=== PATIENT | female | born 1945 | race Caucasian/White ===

== ENCOUNTER 2019-10-07 00:08 | Outpatient (CLI) | payer MEDICARE, SELFPAY ==
[2019-10-07 16:41] LABS: SARS-CoV-2 RNA PCR Negative
== END 2019-10-07 00:09 | disposition home or self-care (01) ==
LOC: ANHCOVIDDT 00:09
PROVIDERS: PCP Internal Medicine; Visit Provider Orthopaedic Surgery
DX: Z01.812 Encounter for preprocedural laboratory examination (principal); Z20.828 Contact with and (suspected) exposure to other viral communicable diseases
CPT/HCPCS: 87635; C9803; U0003

== ENCOUNTER 2019-10-09 02:14 | Day surgery (SDC) | payer MEDICARE, SELFPAY ==
[2019-10-02 14:09] VITALS: BMI 29.2
[2019-10-09] VITALS (8 sets, daily range): BP systolic 113–134; BP diastolic 59–76; PULSE 53–76; RESP 10–18; TEMP 36.6–36.7; O2SAT 93–98
--- NOTE | 2019-10-09 07:43 | WPDHPUPDATE1 ---
History and Physical Update Update Date/Time: 10/09/19 07:43 History and Physical has been reviewed, including an updated exam of the patient. There are NO changes in the patient's condition. Risks, benefits, and alternatives have been discussed and questions answered. Patient agrees to proceed with procedure.
--- NOTE | 2019-10-09 09:10 | WPDANESEPPF ---
Anes - Initial Pre Proc Eval Procedure: Operation Date: 10/09/19 10:30 Proposed Procedures p Left Knee Arthroscopy, Proceed As Indicated - Damon Botello MD Date/Time: 10/09/19 09:10 Surgeon: Damon Botello MD Pre Op Diagnosis: Left Knee medial meniscal tear Patient Data Age: 74 Gender: F Height: 1.65 m Weight: 79.54 kg Allergies Allergy/AdvReac Type Severity Reaction Status Date / Time tetracycline Allergy Unknown Itching Verified 10/03/19 13:35 Home Medications Medication Instructions Recorded Confirmed Type ibuprofen 600 mg tablet 600 mg PO TID PRN #30 tablet 05/30/19 10/02/19 Rx chlorhexidine gluconate 4 % 1 applic TOPICAL ONCE #237 ml 07/04/19 10/02/19 Rx topical liquid acetaminophen [Tylenol Extra 1,000 mg PO BID PRN 10/02/19 10/02/19 History Strength] amlodipine-benazepril 1 cap PO DAILY 10/02/19 10/02/19 History cetirizine [Zyrtec] 10 mg PRN 10/02/19 10/02/19 History cholecalciferol (vitamin D3) 50 mcg PO DAILY 10/02/19 10/02/19 History conjugated estrogens [Premarin] 0.625 mg VAGINAL EVERY OTHER DAY 10/02/19 10/02/19 History levothyroxine 75 mcg PO DAILY 10/02/19 10/02/19 History omeprazole 20 mg PO HS 10/02/19 10/02/19 History rosuvastatin 10 mg PO DAILY 10/02/19 10/02/19 History Patient hx anesthesia problems: none Family hx anesthesia problems: none PMFSH Past Medical History Medical History Acid reflux History of one miscarriage HLD (hyperlipidemia) HTN (hypertension) Hypothyroidism Left knee DJD Low vitamin D level Menopause Pes anserine bursitis Right knee meniscal tear Stress fracture of tibia Trochanteric bursitis Vision abnormalities Surgical History Surgical History H/O arthroscopic knee surgery H/O section Family History Family History Sibling Family history of diabetes mellitus in first degree relative Mother Family history of Alzheimer's disease Social History Social History Smoking status: Never smoker Alcohol intake: never Substance use: never Substance use type: does not use Additional living arrangements comments: Lives with 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 Gender identity (if verbalized by the patient): Female Spiritual care concerns: No Agree to blood products: Yes Anes - Eval Final PreProcedure Day of Procedure 10/09/19 09:10 Patient weight: overweight Heart: regular rate and rhythm Lungs: clear to auscultation and normal air movement Airway: Mallampati scale class II Neurological: alert and oriented Last oral intake: >/= 8 hours ASA classification: II Emergent: no Anesthetic plan: proceed Anesthesia type and monitoring: general LMA Informed Consent: The patient's anesthetic plan and its attendant risks and benefits were discussed with the patient/family/POA. Questions were solicited and answers provided to the satisfaction of the patient/family/POA.
[2019-10-09] MEDS: LACTATED RINGERS 1,000 ML 30 ML IV CONT ×2 (09:15→11:38)
[2019-10-09] MEDS: CELECOXIB 200 MG CAPSULE PO (09:30)
[2019-10-09] MEDS: ceFAZolin 2 GM/D5W 50 ML 2 GM/50 ML BAG IVPB (10:24)
--- NOTE | 2019-10-09 12:09 | PM.OP ---
Procedure Note - Brief Procedure Note - Brief Date of procedure: 10/09/19 Pre-op diagnosis: Left Knee medial meniscal tear Post-op diagnosis: same Procedure performed: R KNEE SCOPE Anesthesia: GLMA Surgeon: Damon Botello MD Estimated blood loss (mL): 5 Complications: No immediate complications Condition: stable Disposition: PACU
--- NOTE | 2019-10-09 13:37 | OP_ITS ---
DATE OF PROCEDURE: 10/09/2019 PREOPERATIVE DIAGNOSIS: Left knee medial meniscus tear. POSTOPERATIVE DIAGNOSIS: Left knee medial meniscus tear. PROCEDURE: Left knee arthroscopy with partial medial meniscectomy and major synovectomy. ANESTHESIA: General. COMPLICATION: None. INDICATIONS: This is a 74-year-old female who has had knee pain, was diagnosed with a complex medial meniscus tear. She was indicated for left knee arthroscopy. DESCRIPTION OF PROCEDURE: The patient was taken to the operative room in stable condition and placed in supine position. General anesthesia was induced and the left lower extremity was sterilely prepped and draped from the toes to the thigh. Superomedial portal was used for an outflow cannula. Inferolateral portal was used for the camera. The camera was introduced. 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 There was synovitis in the superomedial compartment and Hoffa synovium. The medial compartment was entered, there was a complex tear of the medial meniscus. A medial portal was established and a shaver and a biter were introduced at separate times and the medial meniscus tear was resected to a smooth base. Then, limited chondroplasty was performed on the medial femoral condyle. The ACL was identified, it was intact. The lateral compartment was entered. There was no tear of lateral meniscus and no significant chondromalacia. The patellofemoral joint was entered once again and chondroplasty was performed on the patella and on the trochlea. There was significant synovitis that was resected both in the medial and the Hoffa's region. The knee joint was irrigated thoroughly. Another quick look with the arthroscope revealed that there was some [id number] on the medial compartment and that area was approximately 1 x 1 cm. There was no [id number] in the lateral compartment. There was near bone with grade 3 chondromalacia and some parts of the patella as well. The knee joint was irrigated thoroughly. The wounds were approximated with 4-0 nylon suture. Sterile dressing was applied. The patient was extubated. Ananya I MT: Soumya
== END 2019-10-09 13:45 | disposition home or self-care (01) ==
PROVIDERS: PCP Internal Medicine; Visit Provider Orthopaedic Surgery
PROC: (CPT 29870; principal; 2019-10-09 10:30)
DX: M23.332 Other meniscus derangements, other medial meniscus, left knee (principal); M94.262 Chondromalacia, left knee; M65.862 Other synovitis and tenosynovitis, left lower leg; I10 Essential (primary) hypertension; E78.5 Hyperlipidemia, unspecified; E03.9 Hypothyroidism, unspecified; E55.9 Vitamin D deficiency, unspecified; K21.9 Gastro-esophageal reflux disease without esophagitis
CPT/HCPCS: 29881; 29876; A9270; J0690; J2405; J2704; J3010; J7120

== ENCOUNTER 2020-08-17 09:56 | Outpatient (CLI) | payer MEDICARE, SELFPAY ==
[2020-08-17 11:09] LABS: Basophils Absolute Auto 0.1 K/mm3 (0.0-0.1); Basophils Percent Auto 0.6 % (0.2-1.2); Eosinophils Absolute Auto 0.2 K/mm3 (0-0.3); Eosinophils Percent Auto 1.9 % (0-4.4); Hemoglobin 14.9 g/dL (12.0-15.0); Immature Granulocyte Absolute 0.04 K/mm3 (0.00-0.031); Immature Granulocyte Percent A 0.5 % (0-0.5); Lymphocytes Absolute Auto 2.08 K/mm3 (0.9-3.2); Lymphocytes Percent Auto 23.6 % (18.3-44.2); Mean Corpuscular HGB Conc 32.4 g/dl (32-36); Mean Corpuscular Hemoglobin 29.9 pg (26-34); Mean Corpuscular Volume 92.4 fl (80-100); Mean Platelet Volume 9.4 fl (7.4-10.4); Monocytes Absolute Auto 0.8 K/mm3 (0.1-0.6); Monocytes Percent Auto 9.2 % (2.6-8.5); Neutrophils Absolute Auto 5.7 K/mm3 (1.3-6.7); Neutrophils Percent Auto 64.2 % (45.5-73.1); Platelet Count Result 343 k/mm3 (150-375); Red Blood Count 4.98 M/mm3 (4.2-5.4); Red Cell Distribution Width 12.2 % (11.5-14.5); White Blood Count 8.8 K/mm3 (4.5-10.0)
[2020-08-17 11:12] LABS: Add Urine Microscopic? NO; Appearance Urine Clear (Clear); Bilirubin Urine Negative (Negative); Blood Urine Negative (Negative); Color Urine Straw (Yellow); Glucose Urine UA Negative (Negative); Ketones Urine Negative (Negative); Leukocyte Esterase Ur Negative LEU/UL (Negative); Nitrate Urine Negative (Negative); Protein Urine Negative (Negative); Specific Grav Ur 1.011 (1.001-1.035); Urobilinogen Urine Negative mg/dL (<2.0)
[2020-08-17 11:19] LABS: Hemoglobin A1C 6.1 % (<5.7)
[2020-08-17 11:24] LABS: Albumin Level 4.6 g/dL (3.5-5.1); Anion Gap 8 mmol/L (8-16); Blood Urea Nitrogen 16 mg/dL (7-17); Calcium 9.5 mg/dL (8.4-10.2); Carbon Dioxide 32 mmol/L (22-30); Chloride 104 mmol/L (98-107); Estimated Glomerular Filt Rate > 60; Glucose 117 mg/dL (65-105); Potassium 3.7 mmol/L (3.4-5.0); Sodium 144 mmol/L (137-145)
[2020-08-17 11:31] LABS: Urine Cotinine NEGATIVE
[2020-08-17 12:06] LABS: INR 0.9; Prothrombin Time 12.8 Seconds (11.1-14.7)
[2020-08-17 12:07] LABS: Partial Thromboplastin Time 30.9 SECONDS (22.3-36.8)
== END 2020-08-17 09:57 | disposition home or self-care (01) ==
LOC: ANHSURGERY 09:58
PROVIDERS: PCP Internal Medicine; Visit Provider Orthopaedic Surgery
DX: M17.12 Unilateral primary osteoarthritis, left knee (principal); Z01.818 Encounter for other preprocedural examination
CPT/HCPCS: 80048; 80307; 81003; 82040; 83036; 85025; 85610; 85730; 86850; 86900; 86901; 87081

== ENCOUNTER → 2020-08-22 01:04 | Outpatient (CLI) | payer MEDICARE, SELFPAY ==
[2020-08-22 19:44] LABS: SARS-CoV-2 RNA PCR Negative
== END ==
PROVIDERS: PCP Internal Medicine; Visit Provider Orthopaedic Surgery
DX: Z01.812 Encounter for preprocedural laboratory examination (principal); Z20.822 Contact with and (suspected) exposure to COVID-19
CPT/HCPCS: C9803; U0003; U0005

== ENCOUNTER 2020-08-26 17:19 | Observation (INO) | payer MEDICARE, SELFPAY ==
[2020-08-17 10:19] VITALS: BP 156/78; PULSE 70; RESP 18; TEMP 36.8; O2SAT 98; BMI 29.9
--- NOTE | 2020-08-24 14:19 | WPDANESEPPF ---
Anes - Initial Pre Proc Eval Procedure: Operation Date: 08/25/20 10:30 Proposed Procedures p Left Total Knee Arthroplasty - Damon Botello MD Date/Time: 08/24/20 14:19 Surgeon: Damon Botello MD Pre Op Diagnosis: left knee AVN Patient Data Age: 75 Gender: F Height: 1.65 m Weight: 81.5 kg Last Vital Signs Temp 36.8 C 08/17/20 10:19 Pulse 70 08/17/20 10:19 Resp 18 08/17/20 10:19 BP 156/78 H 08/17/20 10:19 Pulse Ox 98 08/17/20 10:19 Allergies Allergy/AdvReac Type Severity Reaction Status Date / Time tetracycline Allergy Unknown Itching Verified 08/17/20 10:08 Home Medications Medication Instructions Recorded Confirmed Type ibuprofen 600 mg tablet 600 mg PO TID PRN #30 tablet 05/30/19 08/17/20 Rx Zyrtec 10 mg PRN PRN 10/02/19 08/17/20 History acetaminophen [Tylenol Extra 1,000 mg PO BID PRN 10/02/19 08/17/20 History Strength] amlodipine-benazepril 1 cap PO QAM 10/02/19 08/17/20 History cholecalciferol (vitamin D3) 50 mcg PO DAILY 10/02/19 08/17/20 History levothyroxine 75 mcg PO DAILY 10/02/19 08/17/20 History omeprazole 20 mg PO HS 10/02/19 08/17/20 History rosuvastatin 10 mg PO QAM 10/02/19 08/17/20 History chlorhexidine gluconate 4 % 1 applic TOPICAL ONCE #237 ml 07/09/20 08/17/20 Rx topical liquid Patient hx anesthesia problems: none Family hx anesthesia problems: none PMFSH Past Medical History Medical History (Updated 08/24/20 @ 14:20 by Robert Bruner MD) Acid reflux AVN (avascular necrosis of bone) History of one miscarriage HLD (hyperlipidemia) HTN (hypertension) Hypothyroidism Left knee DJD Low vitamin D level Menopause Osteoarthritis Overweight (BMI 25.0-29.9) Pes anserine bursitis Right knee meniscal tear Stress fracture of tibia Trochanteric bursitis Vision abnormalities Surgical History Surgical History H/O arthroscopic knee surgery H/O section Family History Family History Sibling Family history of diabetes mellitus in first degree relative Mother Family history of Alzheimer's disease Social History Social History Smoking status: Never smoker Second hand tobacco smoke exposure: No Alcohol intake: never Substance use: never Substance use type: does not use Living arrangements: with family Additional living arrangements comments: Lives with 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 Gender identity (if verbalized by the patient): Female Spiritual care concerns: No Agree to blood products: Yes Anes - Eval Final PreProcedure Day of Procedure 08/24/20 14:19 Patient weight: overweight Heart: regular rate and rhythm Lungs: clear to auscultation and normal air movement Airway: Mallampati scale class II Neurological: alert and oriented Last oral intake: >/= 8 hours ASA classification: II Emergent: no Anesthetic plan: proceed Anesthesia type and monitoring: general LMA Informed Consent: The patient's anesthetic plan and its attendant risks and benefits were discussed with the patient/family/POA. Questions were solicited and answers provided to the satisfaction of the patient/family/POA.
[2020-08-25] VITALS (16 sets, daily range): BP systolic 109–140; BP diastolic 58–77; PULSE 65–88; RESP 10–18; TEMP 36.1–36.6; O2SAT 92–100; BMI 29.9
--- NOTE | 2020-08-25 07:32 | WPDHPUPDATE1 ---
History and Physical Update Update Date/Time: 08/25/20 07:32 History and Physical has been reviewed, including an updated exam of the patient. There are NO changes in the patient's condition. Risks, benefits, and alternatives have been discussed and questions answered. Patient agrees to proceed with procedure.
--- NOTE | 2020-08-25 09:22 | WPDANESPNB ---
Anes - Peripheral Nerve Block Date/Time: 08/25/20 09:22 I have discussed with the patient/family/POA the placement of a peripheral nerve block for post-operative pain management, including associated risks, benefits, complications, and side effects. Alternative methods of post-operative analgesia were detailed. Questions were solicited and answers provided to the satisfaction of the patient/family/POA. Time-Out: A pre-procedural Time-Out was completed immediately before starting the procedure and confirmed: Patient Identification, Site, Procedure, Patient Position and the Availability of Requisite Equipment. Clinical Indications: Acute post-operative pain management requested by the operative surgeon. Nerve Block Insertion Note Anes-nerve block: adductor canal left Patient position: supine Skin prep: chlorhexidine Needle: 22 gauge, stimulating, insulated echogenic needle. Needle length: 80 mm Technique: ultrasound Technique comment: in plane Injectate: bupivacaine 0.5% with epi 5 mcg/ml (30cc) Observations: tolerated well Complications: none Procedure start time:: 1010 Procedure end time:: 101
[2020-08-25] MEDS: ACETAMINOPHEN 500 MG TABLET 1000 MG PO (09:23)
[2020-08-25] MEDS: LACTATED RINGERS 1,000 ML 30 ML IV CONT ×2 (09:28→12:33)
[2020-08-25] MEDS: TRANEXAMIC ACID 1,000MG/ISO100 1,000 MG/100 ML BAG 200 MG IVPB (09:30)
--- NOTE | 2020-08-25 10:17 | WPDHPUPDATE1 ---
History and Physical Update Update Date/Time: 08/25/20 10:17 History and Physical has been reviewed, including an updated exam of the patient. There are NO changes in the patient's condition. Risks, benefits, and alternatives have been discussed and questions answered. Patient agrees to proceed with procedure. WE WILL ALSO INJECT BILATERAL FEET FOR HER PLANTAR FASCITIS.
[2020-08-25] MEDS: ceFAZolin 2 GM/D5W 50 ML 2 GM/50 ML BAG IVPB ×2 (10:20→18:21)
[2020-08-25] MEDS: methylPREDNISolone ACETATE 80 MG/ML VIAL IM (11:04)
[2020-08-25] MEDS: GENTAMICIN BONE CEMENT REFOBACIN 1 EACH TOPICAL (11:10)
[2020-08-25] MEDS: TRANEXAMIC ACID 1,000 MG/10 ML AMPUL 1000 MG IV PUSH (12:06)
--- NOTE | 2020-08-25 12:33 | PM.PROC ---
Procedure Note - Detailed Date of procedure: 08/25/20 Pre-op diagnosis: left knee AVN, B PLANTAR FASCIITIS Post-op diagnosis: same Procedure performed: L TKA, INJECTION BILATERAL FEET Description of procedure: THE LEFT KNEE WAS PREPPED AND DRAPED IN THE STERILE FASHION. A MIDLINE SKIN INCISION WAS MADE. A MEDIAL PARAPATELLAR ARTHROTOMY WAS MADE. THE PATELLA WAS EVERTED. THERE WAS TRICOMPARTMENT DJD. THERE WAS MINIMAL PATELLA DJD. AN INTRAMEDULLARY SUMAN WAS PLACED IN THE FEMUR. A DISTAL FEMORAL CUT WAS MADE IN 5 DEGREES OF VALGUS REMOVING APPROXIMATELY 9 MM OF BONE FROM THE DISTAL FEMUR. THE FEMUR WAS SIZED TO 62.5. A 62.5 FEMORAL CUTTING BLOCK WAS PLACED IN 3 DEGREES OF EXTERNAL ROTATION AND IN ALIGNMENT WITH JB'S LINE AND THE TRANSEPICONDYLAR AXIS. ANTERIOR POSTERIOR AND CHAMFER CUTS WERE MADE. THE CUTS WERE EXCELLENT. NEXT AN INTRAMEDULLARY CUTTING GUIDE WAS PLACED IN THE TIBIA. A TRANS TIBIAL CUT WAS MADE ALONG THE LONG AXIS OF THE TIBIA. APPROXIMATELY 10 MM OF BONE WAS REMOVED FROM THE HIGH SIDE OF THE TIBIA. THE TIBIA WAS THEN PLANED TO A SMOOTH SURFACE. POSTERIOR FEMORAL OSTEOPHYTES WERE REMOVED FROM THE FEMORAL CONDYLES. A 71 TIBIAL TRIAL WAS PLACED IN ALIGNMENT WITH THE 1/3 MEDIAL ASPECT OF THE TIBIAL TUBERCLE. THEN A 70 FEMORAL TRIAL COMPONENT WAS PLACED. BOTH HAD EXCELLENT FITS. EVENTUALLY A 10 MM POLYETHYLENE TRIAL COMPONENT WAS PLACED. THE KNEE WAS TAKEN THROUGH A RANGE OF MOTION. THE KNEE CAME OUT TO FULL EXTENSION. THERE WAS NO ABNORMAL TILT TO THE PATELLA. THERE WAS GOOD A/P AND VARUS/VALGUS STABILITY. THERE WAS NO EXCESSIVE ROLL BACK WITH FLEXION. THE TRIAL COMPONENTS WERE REMOVED. THEN A 62.5 FEMORAL COMPONENT AND 71 TIBIAL COMPONENT WITH A 10 CR POLYETHYLENE COMPONENT WERE CEMENTED INTO PLACE. ONCE THE CEMENT WAS HARD THE KNEE WAS TAKEN THROUGH A ROM AGAIN AND FOUND TO BE STABLE WITH NO PATELLA TILT NO EXCESSIVE ROLL BACK WITH FLEXION AND GOOD STABILITY WITH COMPLETE AND FULL EXTENSION. THE KNEE WAS IRRIGATED WITH STERILE BETADINE AND WATER FOR ABOUT 3 MINUTES. THE BLEEDERS WERE CAUTERIZED. THE ARTHROTOMY WAS REPAIRED WITH NUMBER 1 VICRYL. THE SUB CUTANEOUS LAYER WITH 2-0 VICRYL AND THE SKIN WITH SUDHA. THE WOUND WAS WASHED AND A STERILE DRESSING WAS APPLIED. NEXT BOTH HEALS WERE PREPPED AND INJECTED WITH 1 CC DEPO MEDROL 8O MG AND 3 CC OF LIDOCAINE 1%. THE PATIENT WAS EXTUBATED. Anesthesia: GETA Surgeon: Damon Botello MD Estimated blood loss (mL): 100 Complications: No immediate complications Condition: stable Disposition: PACU
[2020-08-25] MEDS: HYDROmorphone HCL INJ (*CRX) 1 MG/ML SYR 0.25 MG IV PUSH ×4 (12:55→13:31)
--- NOTE | 2020-08-25 14:20 | ADMGEN ---
This patient, Katerina Kiran, was admitted to Medical Room 247-. Patient/family oriented to hospital policies and general routines including ID bracelet, bed and alarms, visiting hours, pain management, procedures, bathroom and other care routines, personal items, smoking policy, room service/diet, and visiting hours. Information on how to activate the Rapid Response Team has been discussed. Patient/Family are encouraged to report perceived risks to care and to ask questions if they do not understand what they are told or what they should do.
--- NOTE | 2020-08-25 15:15 | WPDCN ---
Assessment and Plan Assessment and plan (1) Degenerative joint disease of left knee: Code(s): M17.12 - Unilateral primary osteoarthritis, left knee Status: Acute Assessment and Plan: POD# 0 status post left total knee arthroplasty. Wound care and pain control will be deferred to Dr. Botello as well as DVT prophylaxis. (2) Hypertension: Code(s): I10 - Essential (primary) hypertension Status: Acute Assessment and Plan: Blood pressures were reviewed and they are stable postoperatively. Resume antihypertensives and monitor daily. (3) Hyperlipidemia: Code(s): E78.5 - Hyperlipidemia, unspecified Status: Acute Assessment and Plan: Continue statin and check LFTs. (4) Gastroesophageal reflux disease: Code(s): K21.9 - Gastro-esophageal reflux disease without esophagitis Status: Acute Assessment and Plan: No acute issues. Continue PPI. (5) Hypothyroidism: Code(s): E03.9 - Hypothyroidism, unspecified Status: Chronic Assessment and Plan: Resume levothyroxine and check TSH. (6) Bilateral plantar fasciitis: Code(s): M72.2 - Plantar fascial fibromatosis Status: Acute Assessment and Plan: Status post injections in bilateral feet. (7) Postoperative nausea and vomiting: Code(s): R11.2 - Nausea with vomiting, unspecified; Z98.890 - Other specified postprocedural states Status: Acute Assessment and Plan: Supportive care with IV fluid rehydration and antiemetics as needed. Additional Plan Thank you for allowing us to participate in this patient's care. Please do not hesitate to contact us with any questions. Supervising physician for this medical consultation is Dr. Jennifer Vasquez. [facility] Data of Consult Date/Time: 08/25/20 15:15 Requesting Physician: Damon Botello MD Primary Care Provider: Luis Bond, Consult Narrative Narrative: This is a 75-year-old female with degenerative joint disease left knee with avascular necrosis status post total knee arthroplasty whom the hospitalist service has been consulted for management of her medical conditions postoperatively. Her medical history is significant for GERD, hypertension, hyperlipidemia, and hypothyroidism. She has had pain in that knee for quite some time and despite multiple treatments including injections and arthroscopy she has continued to have pain and thus she elected for replacement today. Her surgery was performed under general anesthesia with no immediate complications documented an estimated blood loss of 100 milliliters. Unfortunately she has had significant nausea and some episodes of emesis since surgery and has only been able to tolerate some crackers and white soda. At the time my evaluation she rates her pain 5/10, describing a constant aching discomfort about the knee. She has not had fever, chills, or sweats and she also denies chest pain shortness of breath. No paresthesias, skin color, or temperature changes distal to the surgical site. Review of Systems Review of Systems: Narrative: Twelve systems were reviewed with pertinent positives and negatives as per HPI. She reports maturing cataracts and wears glasses. Suffers from seasonal allergies. No recent cold or flu symptoms. She did have COVID in April 2020 and has been vaccinated as well. No cardiac or pulmonary disease. No history of venous thromboembolism. Except as documented, all other systems were reviewed and are negative. [facility] Past Medical History Medical History (Updated 08/25/20 @ 20:53 by Carrol Medrano PA-C) COVID-19 (~04/2020) Degenerative joint disease Gastroesophageal reflux disease Hyperlipidemia Hypertension Hypothyroidism Low vitamin D level Surgical History Surgical History (Updated 08/25/20 @ 15:10 by Carrol Medrano PA-C) History of 2 sections History of arthroplasty of left knee History of a
[2020-08-25] MEDS: ONDANSETRON INJ 4 MG/2 ML VIAL IV PUSH (16:04)
[2020-08-25] MEDS: SODIUM CHLORIDE 0.9% IV 1,000 ML 125 ML IV CONT (16:04)
[2020-08-25] MEDS: DOCUSATE SODIUM 100 MG CAPSULE PO (17:55)
[2020-08-25] MEDS: oxyCODONE HCL (*CRX) 2.5 MG TAB IR 7.5 MG PO (18:29)
[2020-08-25] MEDS: oxyCODONE/ACETAMINOPHEN (*CRX) 5-325 MG TABLET 1 TABLET PO (21:51)
[2020-08-25] MEDS: PANTOPRAZOLE 40 MG TABLET PO (21:54)
[2020-08-25] MEDS: FAMOTIDINE 20 MG TABLET PO (21:54)
--- NOTE | ~2020-08-26 | XR_ITS ---
EXAMINATION: XR knee LT 2V DATE: 08/25/2020 12:52 INDICATION: Total left knee arthroplasty. Postop. TECHNIQUE: 2 views of left knee were obtained. COMPARISON: Left knee radiographs 08/17/2020 FINDINGS: There is a total left knee arthroplasty without patellar resurfacing in near-anatomic align ment. No fracture. There is gas in the knee joint and soft tissues, consistent with recent surgery. A nterior skin fatemeh are noted. IMPRESSION: 1. Total left knee arthroplasty in near-anatomic alignment. Reviewed, dictated and finalized at location B.
[2020-08-26] MEDS: ceFAZolin 2 GM/D5W 50 ML 2 GM/50 ML BAG IVPB ×2 (02:50→09:41)
[2020-08-26 03:58] VITALS: BP 112/58; PULSE 71; RESP 18; TEMP 36.6; O2SAT 96
[2020-08-26] MEDS: oxyCODONE/ACETAMINOPHEN (*CRX) 5-325 MG TABLET 1 TABLET PO ×3 (04:47→16:54)
[2020-08-26 05:54] LABS: Alanine Aminotransferase 21 U/L (4-35); Albumin Level 3.9 g/dL (3.5-5.1); Alkaline Phosphatase 66 U/L (38-126); Anion Gap 6 mmol/L (8-16); Aspartate Amino Transferase 31 U/L (14-36); Bilirubin,Total 0.3 mg/dL (0.2-1.3); Blood Urea Nitrogen 11 mg/dL (7-17); Calcium 8.9 mg/dL (8.4-10.2); Carbon Dioxide 28 mmol/L (22-30); Chloride 104 mmol/L (98-107); Estimated CRCL calculation 75 ml/min; Estimated Glomerular Filt Rate > 60; Glucose 124 mg/dL (65-105); Potassium 4.1 mmol/L (3.4-5.0); Sodium 138 mmol/L (137-145)
[2020-08-26 05:55] LABS: Basophils Percent Auto 0.1 % (0.2-1.2); Hematocrit 36.2 % (37.0-47.0); Hemoglobin 11.9 g/dL (12.0-15.0); Immature Granulocyte Absolute 0.05 K/mm3 (0.00-0.031); Immature Granulocyte Percent A 0.3 % (0-0.5); Lymphocytes Absolute Auto 0.97 K/mm3 (0.9-3.2); Lymphocytes Percent Auto 6.5 % (18.3-44.2); Mean Corpuscular HGB Conc 32.9 g/dl (32-36); Mean Corpuscular Hemoglobin 30.1 pg (26-34); Mean Corpuscular Volume 91.6 fl (80-100); Mean Platelet Volume 9.6 fl (7.4-10.4); Monocytes Percent Auto 13.2 % (2.6-8.5); Neutrophils Absolute Auto 11.8 K/mm3 (1.3-6.7); Neutrophils Percent Auto 79.9 % (45.5-73.1); Platelet Count Result 279 k/mm3 (150-375); Red Blood Count 3.95 M/mm3 (4.2-5.4); Red Cell Distribution Width 12.1 % (11.5-14.5); White Blood Count 14.8 K/mm3 (4.5-10.0)
[2020-08-26] MEDS: LEVOTHYROXINE SODIUM 75 MCG TABLET PO (06:09)
[2020-08-26 06:25] VITALS: BP 120/57; PULSE 77; RESP 20; TEMP 37.2; O2SAT 98
[2020-08-26 06:39] LABS: Thyroid Stimulating Hormone Reflex 0.118 uIU/mL (0.465-4.68)
[2020-08-26 07:59] LABS: Free T4 Free Thyroxine Reflex 1.07 ng/dL (0.78-2.19)
[2020-08-26] MEDS: amLODIPine BESYLATE 5 MG TABLET PO (08:23)
[2020-08-26] MEDS: CHOLECALCIFEROL 1,000 UNITS TABLET 2000 UNITS PO (08:23)
[2020-08-26] MEDS: FAMOTIDINE 20 MG TABLET PO ×2 (08:23→20:33)
[2020-08-26] MEDS: DOCUSATE SODIUM 100 MG CAPSULE PO ×2 (08:23→16:51)
[2020-08-26] MEDS: ASPIRIN 325 MG ENTERIC TABLET 650 MG PO (08:23)
[2020-08-26] MEDS: lisinopriL 20 MG TABLET PO (08:24)
[2020-08-26] MEDS: ROSUVASTATIN 10 MG TABLET PO (08:24)
[2020-08-26 08:34] VITALS: PULSE 77; RESP 20; O2SAT 98
[2020-08-26 09:02] LABS: Total Triiodothyronine (T3) 0.77 NG/ML (0.97-1.69)
--- NOTE | 2020-08-26 09:33 | P.PNAN_ITS ---
Anes - Prog Note Post-Op Date/Time: 08/26/20 09:33 Cardiovascular status: normal Respiratory status: normal Airway patency: baseline Mental status: baseline Post-Op hydration status: normal Vital Signs: Last Vital Signs Temp 37.2 C 08/26/20 06:25 Pulse 77 08/26/20 08:34 Resp 20 08/26/20 08:34 BP 120/57 L 08/26/20 06:25 Pulse Ox 98 08/26/20 08:34 Pain Score (VAS): no c/o pain I/O: Intake & Output 08/25/20 08/26/20 08/26/20 23:59 07:59 15:59 Intake Total 290 1550 240 Output Total 400 600 Balance -110 950 240 Laboratory Tests 08/26/20 05:33 08/26/20 05:33 08/26/20 08/26/20 08/26/20 05:33 05:33 05:33 WBC 14.8 H RBC 3.95 L Hgb 11.9 L D Hct 36.2 L MCV 91.6 MCH 30.1 MCHC 32.9 RDW 12.1 Plt Count 279 MPV 9.6 Immature Gran % (Auto) 0.3 Neut % (Auto) 79.9 H Lymph % (Auto) 6.5 L [place] % (Auto) 13.2 H Eos % (Auto) 0.0 Baso % (Auto) 0.1 L Lymph # (Auto) 0.97 [place] # (Auto) 2.0 H Eos # (Auto) 0.0 Baso # (Auto) 0.0 Abs Immat Gran (auto) 0.05 H Absolute Neuts (auto) 11.8 H Absolute Nucleated RBC 0.0 Nucleated RBC % 0.0 Sodium 138 Potassium 4.1 Chloride 104 Carbon Dioxide 28 Anion Gap 6 L BUN 11 D Creatinine 0.60 L Estim Creat Clear Calc 75 Estimated GFR > 60 Glucose 124 H Calcium 8.9 Total Bilirubin 0.3 Direct Bilirubin 0.0 AST 31 ALT 21 Alkaline Phosphatase 66 Total Protein 7.0 Albumin 3.9 TSH (Reflex) 0.118 L Free T4 Total T3 08/26/20 08/26/20 05:33 05:33 WBC RBC Hgb Hct MCV MCH MCHC RDW Plt Count MPV Immature Gran % (Auto) Neut % (Auto) Lymph % (Auto) [place] % (Auto) Eos % (Auto) Baso % (Auto) Lymph # (Auto) [place] # (Auto) Eos # (Auto) Baso # (Auto) Abs Immat Gran (auto) Absolute Neuts (auto) Absolute Nucleated RBC Nucleated RBC % Sodium Potassium Chloride Carbon Dioxide Anion Gap BUN Creatinine Estim Creat Clear Calc Estimated GFR Glucose Calcium Total Bilirubin Direct Bilirubin AST ALT Alkaline Phosphatase Total Protein Albumin TSH (Reflex) Free T4 1.07 Total T3 0.77 L Post-procedural complaints: none Patient Feedback: Patient satisfied with anesthetic care.
[2020-08-26 10:00] VITALS: BP 115/62; PULSE 75; RESP 18; TEMP 36.3; O2SAT 92
[2020-08-26] MEDS: ACETAMINOPHEN 500 MG TABLET 1000 MG PO ×2 (10:51→22:54)
[2020-08-26 14:00] VITALS: BP 129/53; PULSE 75; RESP 18; TEMP 36.1; O2SAT 96
--- NOTE | 2020-08-26 16:12 | PM.IMCN ---
HPI Data of Consult Consult date: 08/26/20 Requesting Physician: Damon Botello MD Primary Care Provider: Luis Bond, Consult Narrative Narrative: Kaetrina Kiran is a 75 year old female [facility] Past Medical History Medical History (Updated 08/25/20 @ 20:53 by Carrol Medrano PA-C) COVID-19 (~04/2020) Degenerative joint disease Gastroesophageal reflux disease Hyperlipidemia Hypertension Hypothyroidism Low vitamin D level Surgical History Surgical History (Updated 08/25/20 @ 15:10 by Carrol Medrano PA-C) History of 2 sections History of arthroplasty of left knee History of arthroscopy of both knees History of dilation and curettage History of tubal ligation Family History Family History Sibling Family history of diabetes mellitus in first degree relative Mother Family history of Alzheimer's disease Social History Social History (Updated 08/25/20 @ 15:11 by Carrol Medrano PA-C) Social History: Surrogate decision maker: Seth Kiran, . Code status: Full code. Smoking status: Never smoker Second hand tobacco smoke exposure: No Alcohol intake: never Substance use: never Substance use type: does not use Living arrangements: with family Additional living arrangements comments: The patient lives in [place] with her . 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 Gender identity (if verbalized by the patient): Female Spiritual care concerns: No Agree to blood products: Yes Meds Home Medications and Allergies Home Medications Medication Instructions Recorded Confirmed Type ibuprofen 600 mg tablet 600 mg PO TID PRN #30 tablet 05/30/19 08/25/20 Rx Zyrtec 10 mg PRN PRN 10/02/19 08/25/20 History acetaminophen [Tylenol Extra 1,000 mg PO BID PRN 10/02/19 08/25/20 History Strength] amlodipine-benazepril 1 cap PO QAM 10/02/19 08/25/20 History cholecalciferol (vitamin D3) 50 mcg PO DAILY 10/02/19 08/25/20 History levothyroxine 75 mcg PO DAILY 10/02/19 08/25/20 History omeprazole 20 mg PO HS 10/02/19 08/25/20 History rosuvastatin 10 mg PO QAM 10/02/19 08/25/20 History chlorhexidine gluconate 4 % 1 applic TOPICAL ONCE #237 ml 07/09/20 08/25/20 Rx topical liquid Allergies Allergy/AdvReac Type Severity Reaction Status Date / Time tetracycline Allergy Unknown Itching Verified 08/25/20 14:37 Vital Signs Vital Signs - 24 hr 08/25/20 17:06 08/25/20 18:00 08/25/20 23:58 Temperature 36.2 C L 36.2 C L Pulse Rate 88 79 Respiratory Rate 18 18 Blood Pressure 131/66 133/71 Pulse Oximetry 100 99 96 08/26/20 03:58 08/26/20 06:25 08/26/20 08:34 Temperature 36.6 C 37.2 C Pulse Rate 71 77 77 Respiratory Rate 18 20 20 Blood Pressure 112/58 L 120/57 L Pulse Oximetry 96 98 98 08/26/20 10:00 08/26/20 14:00 Temperature 36.3 C L 36.1 C L Pulse Rate 75 75 Respiratory Rate 18 18 Blood Pressure 115/62 129/53 L Pulse Oximetry 92 96 Results Labs CBC & Chem 7: 08/26/20 05:33 08/26/20 05:33 Labs: Short CBC 08/26/20 Range/Units 05:33 WBC 14.8 H (4.5-10.0) K/mm3 Hgb 11.9 L D (12.0-15.0) g/dL Hct 36.2 L (37.0-47.0) % Plt Count 279 (150-375) k/mm3 [facility] 08/26/20 05:33 Sodium 138 Potassium 4.1 Chloride 104 Carbon Dioxide 28 BUN 11 D Creatinine 0.60 L Glucose 124 H Calcium 8.9 Liver Function 08/26/20 Range/Units 05:33 Total Bilirubin 0.3 (0.2-1.3) mg/dL Direct Bilirubin 0.0 (0-0.3) mg/dL AST 31 (14-36) U/L ALT 21 (4-35) U/L Alkaline Phosphatase 66 (38-126) U/L Albumin 3.9 (3.5-5.1) g/dL
--- NOTE | 2020-08-26 16:56 | PM.IMPN ---
Progress Note: A&P Assessment and Plan (1) Degenerative joint disease of left knee: Code(s): M17.12 - Unilateral primary osteoarthritis, left knee Status: Acute Assessment and Plan: POD# 1 status post left total knee arthroplasty. Pt doing well with PT/OT. Pt having pain control has DVT prophylaxis (2) Hypertension: Code(s): I10 - Essential (primary) hypertension Status: Acute Assessment and Plan: Resume antihypertensives and monitor daily. (3) Hyperlipidemia: Code(s): E78.5 - Hyperlipidemia, unspecified Status: Acute Assessment and Plan: Continue statin (4) Gastroesophageal reflux disease: Code(s): K21.9 - Gastro-esophageal reflux disease without esophagitis Status: Acute Assessment and Plan: No acute issues. Continue PPI. (5) Hypothyroidism: Code(s): E03.9 - Hypothyroidism, unspecified Status: Chronic Assessment and Plan: TSH is low will decrease dose of levothyroxine on discharge . (6) Bilateral plantar fasciitis: Code(s): M72.2 - Plantar fascial fibromatosis Status: Acute Assessment and Plan: Status post injections in bilateral feet. (7) Postoperative nausea and vomiting: Code(s): R11.2 - Nausea with vomiting, unspecified; Z98.890 - Other specified postprocedural states Status: Resolved Assessment and Plan: Resolved started pt on miralax Subjective Date/time seen: 08/26/20 16:56 Interval history: Pt is doing well long discussion about morning labs. Pt is post op day 1 left total knee replacement. Pt has history of hypertension, hypothyroidism, HLD TSh is low Wcc is high. Pt is a pleasant lady no specific compliants. Review of Systems Review of Systems: All systems reviewed & are unremarkable except as noted in HPI and below Exam Const: General: cooperative and healthy appearing; No in distress Nutritional Appearance: overweight Orientation/consciousness: oriented to person HENMT: Head: normal to inspection Resp: Effort & Inspection: no respiratory distress Auscultation: no rhonchi and no wheezes Cardio: Rate: regular rate Rhythm: regular rhythm GI: Inspection: normal to inspection GI Palp: No abdominal tenderness, No Guarding due to palpation present (GI) and No Hepatomegaly present Auscultation: normal bowel sounds Neuro: General: oriented to person Extrem: General: other (Left knee replacement, good sensation and pulses in the foot ) Objective Data Vital Signs Vital Signs: Vital Signs - 24 hr 08/25/20 17:06 08/25/20 18:00 08/25/20 23:58 Temperature 36.2 C L 36.2 C L Pulse Rate 88 79 Respiratory Rate 18 18 Blood Pressure 131/66 133/71 Pulse Oximetry 100 99 96 08/26/20 03:58 08/26/20 06:25 08/26/20 08:34 Temperature 36.6 C 37.2 C Pulse Rate 71 77 77 Respiratory Rate 18 20 20 Blood Pressure 112/58 L 120/57 L Pulse Oximetry 96 98 98 08/26/20 10:00 08/26/20 14:00 Temperature 36.3 C L 36.1 C L Pulse Rate 75 75 Respiratory Rate 18 18 Blood Pressure 115/62 129/53 L Pulse Oximetry 92 96 Intake/Output Intake/Output: Intake & Output 08/23/20 08/24/20 08/25/20 08/26/20 23:59 23:59 23:59 23:59 Intake Total 540 2040 Output Total 400 600 Balance 140 1440 Meds/Results Medications: Active Medications Generic Name Dose Route Start Last Admin Trade Name Freq PRN Reason Stop Dose Admin Acetaminophen 1,000 mg 08/25/20 14:13 08/26/20 10:51 Acetaminophen 500 Mg Tablet PO 1,000 mg BID PRN Administration Pain 1-3 Amlodipine Besylate 5 mg 08/26/20 09:00 08/26/20 08:23 Amlodipine Besylate 5 Mg Tablet PO 09/25/20 09:01 5 mg QAM MARLA Administration Aspirin 650 mg 08/26/20 09:00 08/26/20 08:23 Aspirin 325 Mg Enteric Tablet PO 650 mg DAILY MARLA Administration Diazepam 5 mg 08/25/20 14:13 Diazepam (*Crx) 5 Mg Tablet PO Q8H PRN Spasms Diphenhydra
--- NOTE | 2020-08-26 17:06 | PM.PNORT ---
Progress Note: A&P Additional Plan POD 1 WITH SLOW PROGRESS. RECOMMEND DC HOME TMRW AFTER ANOTHER SESSION OF PT. Subjective Subjective Date/Time Seen: 08/26/20 17:0POD 1 DOING WELL. SLOW PROGRES WITH PT. NO CALF PAIN Exam Extrem: Other: VSS AFEBRILE DRESSING DRY NV INTACT NEG HOMANS SIGN CALF SOFT NON TENDER Objective Data Vital Signs Vital Signs: Vital Signs - 24 hr 08/25/20 18:00 08/25/20 23:58 08/26/20 03:58 Temperature 36.2 C L 36.2 C L 36.6 C Pulse Rate 88 79 71 Respiratory Rate 18 18 18 Blood Pressure 131/66 133/71 112/58 L Pulse Oximetry 99 96 96 08/26/20 06:25 08/26/20 08:34 08/26/20 10:00 Temperature 37.2 C 36.3 C L Pulse Rate 77 77 75 Respiratory Rate 20 20 18 Blood Pressure 120/57 L 115/62 Pulse Oximetry 98 98 92 08/26/20 14:00 Temperature 36.1 C L Pulse Rate 75 Respiratory Rate 18 Blood Pressure 129/53 L Pulse Oximetry 96 Intake/Output Intake/Output: Intake & Output 08/23/20 08/24/20 08/25/20 08/26/20 23:59 23:59 23:59 23:59 Intake Total 540 2040 Output Total 400 600 Balance 140 1440 Meds/Results Medications: Active Medications Generic Name Dose Route Start Last Admin Trade Name Freq PRN Reason Stop Dose Admin Acetaminophen 1,000 mg 08/25/20 14:13 08/26/20 10:51 Acetaminophen 500 Mg Tablet PO 1,000 mg BID PRN Administration Pain 1-3 Amlodipine Besylate 5 mg 08/26/20 09:00 08/26/20 08:23 Amlodipine Besylate 5 Mg Tablet PO 09/25/20 09:01 5 mg QAM MARLA Administration Aspirin 650 mg 08/26/20 09:00 08/26/20 08:23 Aspirin 325 Mg Enteric Tablet PO 650 mg DAILY MARLA Administration Diazepam 5 mg 08/25/20 14:13 Diazepam (*Crx) 5 Mg Tablet PO Q8H PRN Spasms Diphenhydramine HCl 25 mg 08/25/20 14:13 Diphenhydramine Hcl Inj 50 Mg/Ml Vial IV PUSH Q6H PRN Itching Docusate Sodium 100 mg 08/25/20 17:00 08/26/20 16:51 Docusate Sodium 100 Mg Capsule PO 100 mg BID MARLA Administration Famotidine 20 mg 08/25/20 21:00 08/26/20 08:23 Famotidine 20 Mg Tablet PO 20 mg Q12HR MARLA Administration Levothyroxine Sodium 75 mcg 08/26/20 06:30 08/26/20 06:09 Levothyroxine Sodium 75 Mcg Tablet PO 75 mcg DAILY@0630 MARLA Administration Lisinopril 20 mg 08/26/20 09:00 08/26/20 08:24 Lisinopril 20 Mg Tablet PO 20 mg QAM [facility] Administration Loratadine 10 mg 08/25/20 14:13 Loratadine 10 Mg Tablet BY MOUTH QAM PRN Congestion Naloxone HCl 0.1 mg 08/25/20 14:13 Naloxone Hcl 0.4 Mg/Ml Vial IV PUSH Q2M PRN Opiate Reversal Ondansetron HCl 4 mg 08/25/20 14:13 08/25/20 16:04 Ondansetron Inj 4 Mg/2 Ml Vial IV PUSH 4 mg Q4H PRN Administration Nausea And Vomiting Oxycodone HCl 7.5 mg 08/25/20 14:13 08/25/20 18:29 Oxycodone Hcl (*Crx) 2.5 Mg Tab Ir PO 7.5 mg Q4H PRN Administration Pain Rated 7-10 Oxycodone/Acetaminophen 1 tablet 08/25/20 14:13 08/26/20 16:54 Oxycodone/Acetaminophen (*Crx) 5-325 Mg Tablet PO 1 tablet Q4H PRN Administration Pain Rated 4-6 Pantoprazole Sodium 40 mg 08/25/20 21:00 08/25/20 21:54 Pantoprazole 40 Mg Tablet PO 40 mg HS [facility] Administration Polyethylene Glycol 17 gm 08/27/20 09:00 Polyethylene Glycol 3350 17 Gm Powd.Pack PO QAM [facility] Rosuvastatin Calcium 10 mg 08/26/20 09:00 08/26/20 08:24 Rosuvastatin 10 Mg Tablet PO 10 mg QAM [facility] Administration Vitamin D 2,000 units 08/26/20 09:00 08/26/20 08:23 Cholecalciferol 1,000 Units Tablet PO 2,000 units DAILY [facility] Administration Radiology Results: ITS Impressions Knee X-Ray 04/20/21 12:53 IMPRESSION: 1. Total left knee arthroplasty in near-anatomic alignment. Labs Labs: Laboratory Results - last 24 hr 08/26/20 08/26/20 08/26/20 05:33 05:33 05:33 WBC 14.8 H RBC 3.95 L Hgb 11.9 L D Hct 36.2 L MCV 91.6 MCH 30.1 MCHC 32.9 RDW 12.1 Plt Count 279 MPV
[2020-08-26] MEDS: PANTOPRAZOLE 40 MG TABLET PO (20:33)
[2020-08-26 22:00] VITALS: BP 139/62; PULSE 84; RESP 16; TEMP 37.1; O2SAT 97
[2020-08-27 01:30] VITALS: BP 133/55; PULSE 77; RESP 16; TEMP 36.7; O2SAT 93
[2020-08-27] MEDS: oxyCODONE/ACETAMINOPHEN (*CRX) 5-325 MG TABLET 1 TABLET PO ×2 (03:58→21:11)
[2020-08-27 05:35] LABS: Hematocrit 33.3 % (37.0-47.0); Hemoglobin 10.9 g/dL (12.0-15.0); Mean Corpuscular HGB Conc 32.7 g/dl (32-36); Mean Corpuscular Hemoglobin 29.6 pg (26-34); Mean Corpuscular Volume 90.5 fl (80-100); Mean Platelet Volume 9.9 fl (7.4-10.4); Platelet Count Result 249 k/mm3 (150-375); Red Blood Count 3.68 M/mm3 (4.2-5.4); Red Cell Distribution Width 12.2 % (11.5-14.5)
[2020-08-27 05:59] LABS: Anion Gap 4 mmol/L (8-16); Blood Urea Nitrogen 12 mg/dL (7-17); Calcium 8.7 mg/dL (8.4-10.2); Carbon Dioxide 31 mmol/L (22-30); Chloride 102 mmol/L (98-107); Estimated CRCL calculation 88 ml/min; Estimated Glomerular Filt Rate > 60; Glucose 133 mg/dL (65-105); Potassium 3.9 mmol/L (3.4-5.0); Sodium 137 mmol/L (137-145)
[2020-08-27 06:00] VITALS: BP 137/61; PULSE 76; RESP 18; TEMP 36.6; O2SAT 93
[2020-08-27] MEDS: LEVOTHYROXINE SODIUM 75 MCG TABLET PO (06:27)
[2020-08-27] MEDS: oxyCODONE HCL (*CRX) 2.5 MG TAB IR 7.5 MG PO ×2 (07:48→11:55)
[2020-08-27] MEDS: amLODIPine BESYLATE 5 MG TABLET PO (08:53)
--- NOTE | 2020-08-27 08:53 | PM.PNORT ---
Progress Note: A&P Assessment and Plan (1) S/P total knee arthroplasty: Qualifiers: Laterality: left Qualified Code(s): Z96.652 - Presence of left artificial knee joint Code(s): Z96.659 - Presence of unspecified artificial knee joint Status: Acute Assessment and Plan: POD #2: L TKA, INJECTION BILATERAL FEET Continue PT/OT. WBAT. Walker. HIGH FALL RISK. Continue pain control. Ice. SCDs. Incentive Spriometry. DVT prophylaxis. Bowel regimen. Monitor dressing. Change prior to discharge. Dispo: Home with Home Health pending progress with PT/OT. Hopeful for discharge today. (2) Bilateral plantar fasciitis: Code(s): M72.2 - Plantar fascial fibromatosis Status: Acute Assessment and Plan: Pain improved. (3) Postoperative nausea and vomiting: Code(s): R11.2 - Nausea with vomiting, unspecified; Z98.890 - Other specified postprocedural states Status: Acute Assessment and Plan: Improving Subjective Subjective Date/Time Seen: 08/27/20 08:53 POD #2: Left TKA Patient reports her left leg feeling heavy . Otherwise, pain improved. Tolerating PT/OT. Hopeful for discharge today but concerned about going home with block still active. Review of Systems Review of Systems: All systems reviewed & are unremarkable except as noted in HPI and below Constitutional: Constitutional: Denies fatigue, Denies fever(s), Denies headache(s) and Denies weakness ENT: Denies headache(s) Cardiovascular: Cardiovascular: Denies chest pain, Denies diaphoresis, Denies palpitations and Denies dyspnea Respiratory: Respiratory: Denies dyspnea Gastrointestinal: Gastrointestinal: Denies abdominal pain, Denies constipation, Denies nausea and Denies vomiting Genitourinary: Genitourinary: Reports nocturia and Denies dysuria Musculoskeletal: Musculoskeletal: Reports arthralgias (Left Knee ) and Reports joint swelling (Left Knee ) Neurologic: Denies headache(s) Endocrine: Endocrine: Denies palpitations Exam Const: General: comfortable and no acute distress Resp: Effort & Inspection: normal respiratory effort Cardio: Rate: regular rate Rhythm: regular rhythm GI: GI Palp: Yes Soft to palpation, No Tenderness to palpation present (GI) and No Guarding due to palpation present (GI) Skin: Wounds: wounds noted (incision c/d/i ) Other: Incision c/d/i. No surrounding redness/warmth. No hematoma. Mild ecchymosis. No wound dehiscence Neuro: Cognition (Neuro): normal cognition Other: NV intact aside from block. Moves toes. Sensation intact to light touch. +ankle dorsiflexion/plantarflexion. Extrem: Left lower extremity: normal to inspection and knee Details: tenderness (diffuse ), swelling (mild ) and abnormal ROM (ROM limited due to pain/consistent with recent surgery) Other: Incision left TKA dressing c/d/i. No hematoma. No signs of infection. No wound dehiscence. Psych: Mental Status: mental status grossly normal Objective Data Vital Signs Vital Signs: Vital Signs - 24 hr 08/26/20 10:00 08/26/20 14:00 08/26/20 22:00 Temperature 36.3 C L 36.1 C L 37.1 C Pulse Rate 75 75 84 Respiratory Rate 18 18 16 Blood Pressure 115/62 129/53 L 139/62 Pulse Oximetry 92 96 97 08/27/20 01:30 08/27/20 06:00 Temperature 36.7 C 36.6 C Pulse Rate 77 76 Respiratory Rate 16 18 Blood Pressure 133/55 L 137/61 Pulse Oximetry 93 93 Intake/Output Intake/Output: Intake & Output 08/24/20 08/25/20 08/26/20 08/27/20 23:59 23:59 23:59 23:59 Intake Total 540 2780 500 Output Total 400 2250 600 Balance 140 530 -100 Meds/Results Medications: Active Medications Generic Name Dose Route Start Last Admin Trade Name Eligioq PRN Reason Stop Dose Admin Acetaminophen 1,000 mg 08/25/20 14:13 08/26/20 22:54 Acetaminophen 500 Mg Tablet PO 1,000 mg BID PRN Administration Pain 1-3 Amlodipine Besylate 5 mg 08/26/20 09:00 08/26/20 08:23 Amlodipine Besylate 5 Mg T
[2020-08-27] MEDS: ASPIRIN 325 MG ENTERIC TABLET 650 MG PO (08:54)
[2020-08-27] MEDS: CHOLECALCIFEROL 1,000 UNITS TABLET 2000 UNITS PO (08:54)
[2020-08-27] MEDS: DOCUSATE SODIUM 100 MG CAPSULE PO ×2 (08:54→16:27)
[2020-08-27] MEDS: FAMOTIDINE 20 MG TABLET PO ×2 (08:55→20:39)
[2020-08-27] MEDS: polyethylene glycoL 3350 17 GM POWD.PACK PO (08:55)
[2020-08-27] MEDS: ROSUVASTATIN 10 MG TABLET PO (08:55)
[2020-08-27] MEDS: lisinopriL 20 MG TABLET PO (08:55)
[2020-08-27 09:00] VITALS: RESP 18; O2SAT 93
--- NOTE | 2020-08-27 12:34 | PM.IMPN ---
Progress Note: A&P Assessment and Plan (1) Degenerative joint disease of left knee: Code(s): M17.12 - Unilateral primary osteoarthritis, left knee Status: Acute Assessment and Plan: POD# 2 status post left total knee arthroplasty. Pt feeling more pain in her knee today. Pt doing well with PT/OT. Pt having pain control has DVT prophylaxis high wcc maybe stress reaction, tsh low will adjust levothyroxine on discharge (2) Hypertension: Code(s): I10 - Essential (primary) hypertension Status: Acute Assessment and Plan: Resume antihypertensives and monitor daily. (3) Hyperlipidemia: Code(s): E78.5 - Hyperlipidemia, unspecified Status: Acute Assessment and Plan: Continue statin (4) Gastroesophageal reflux disease: Code(s): K21.9 - Gastro-esophageal reflux disease without esophagitis Status: Acute Assessment and Plan: No acute issues. Continue PPI. (5) Hypothyroidism: Code(s): E03.9 - Hypothyroidism, unspecified Status: Chronic Assessment and Plan: TSH is low will decrease dose of levothyroxine on discharge . (6) Bilateral plantar fasciitis: Code(s): M72.2 - Plantar fascial fibromatosis Status: Acute Assessment and Plan: Status post injections in bilateral feet. (7) Postoperative nausea and vomiting: Code(s): R11.2 - Nausea with vomiting, unspecified; Z98.890 - Other specified postprocedural states Status: Resolved Assessment and Plan: Resolved started pt on miralax Subjective Date/time seen: 08/27/20 12:34 Interval history: Pt is doing well long discussion about morning labs. Pt is post op day 2 left total knee replacement. Pt has history of hypertension, hypothyroidism, HLD. Pt doing well hopeful discharge tomorrow. Review of Systems Review of Systems: All systems reviewed & are unremarkable except as noted in HPI and below Exam Const: General: cooperative and healthy appearing; No in distress Nutritional Appearance: overweight Orientation/consciousness: oriented to person HENMT: Head: normal to inspection Resp: Effort & Inspection: no respiratory distress Auscultation: no rhonchi and no wheezes Cardio: Rate: regular rate Rhythm: regular rhythm GI: Inspection: normal to inspection Auscultation: normal bowel sounds Neuro: General: oriented to person Extrem: General: other (Left knee replacement, good sensation and pulses in the foot ) Objective Data Vital Signs Vital Signs: Vital Signs - 24 hr 08/26/20 14:00 08/26/20 22:00 08/27/20 01:30 Temperature 36.1 C L 37.1 C 36.7 C Pulse Rate 75 84 77 Respiratory Rate 18 16 16 Blood Pressure 129/53 L 139/62 133/55 L Pulse Oximetry 96 97 93 08/27/20 06:00 08/27/20 09:00 Temperature 36.6 C Pulse Rate 76 Respiratory Rate 18 18 Blood Pressure 137/61 Pulse Oximetry 93 93 Intake/Output Intake/Output: Intake & Output 08/24/20 08/25/20 08/26/20 08/27/20 23:59 23:59 23:59 23:59 Intake Total 540 2780 740 Output Total 400 2250 600 Balance 140 530 140 Meds/Results Medications: Active Medications Generic Name Dose Route Start Last Admin Trade Name Freq PRN Reason Stop Dose Admin Acetaminophen 1,000 mg 08/25/20 14:13 08/26/20 22:54 Acetaminophen 500 Mg Tablet PO 1,000 mg BID PRN Administration Pain 1-3 Amlodipine Besylate 5 mg 08/26/20 09:00 08/27/20 08:53 Amlodipine Besylate 5 Mg Tablet PO 09/25/20 09:01 5 mg QAM MARLA Administration Aspirin 650 mg 08/26/20 09:00 08/27/20 08:54 Aspirin 325 Mg Enteric Tablet PO 650 mg DAILY MARLA Administration Diazepam 5 mg 08/25/20 14:13 Diazepam (*Crx) 5 Mg Tablet PO Q8H PRN Spasms Diphenhydramine HCl 25 mg 08/25/20 14:13 Diphenhydramine Hcl Inj 50 Mg/Ml Vial IV PUSH Q6H PRN Itching Docusate Sodium 100 mg 08/25/20 17:00 08/27/20 08:54 Docusate Sodium 100 Mg
[2020-08-27 16:16] VITALS: O2SAT 95
[2020-08-27] MEDS: PANTOPRAZOLE 40 MG TABLET PO (20:39)
[2020-08-27 21:48] VITALS: O2SAT 97
[2020-08-27 22:00] VITALS: BP 138/58; PULSE 84; RESP 18; TEMP 36.1; O2SAT 97
[2020-08-28 02:00] VITALS: BP 121/61; PULSE 75; RESP 18; TEMP 36.1; O2SAT 96
[2020-08-28 05:39] LABS: Hematocrit 34.4 % (37.0-47.0); Hemoglobin 10.9 g/dL (12.0-15.0); Mean Corpuscular HGB Conc 31.7 g/dl (32-36); Mean Corpuscular Hemoglobin 29.5 pg (26-34); Mean Corpuscular Volume 93.2 fl (80-100); Platelet Count Result 249 k/mm3 (150-375); Red Blood Count 3.69 M/mm3 (4.2-5.4); Red Cell Distribution Width 12.3 % (11.5-14.5); White Blood Count 12.3 K/mm3 (4.5-10.0)
[2020-08-28 06:00] VITALS: BP 124/59; PULSE 78; RESP 18; TEMP 36.4; O2SAT 97
[2020-08-28 06:00] LABS: Anion Gap 5 mmol/L (8-16); Blood Urea Nitrogen 14 mg/dL (7-17); Calcium 8.6 mg/dL (8.4-10.2); Carbon Dioxide 31 mmol/L (22-30); Chloride 101 mmol/L (98-107); Estimated CRCL calculation 75 ml/min; Estimated Glomerular Filt Rate > 60; Glucose 120 mg/dL (65-105); Potassium 3.8 mmol/L (3.4-5.0); Sodium 137 mmol/L (137-145)
[2020-08-28] MEDS: oxyCODONE/ACETAMINOPHEN (*CRX) 5-325 MG TABLET 1 TABLET PO ×2 (06:08→10:40)
[2020-08-28] MEDS: LEVOTHYROXINE SODIUM 75 MCG TABLET PO (06:09)
[2020-08-28] MEDS: ROSUVASTATIN 10 MG TABLET PO (08:19)
[2020-08-28] MEDS: FAMOTIDINE 20 MG TABLET PO (08:20)
[2020-08-28] MEDS: lisinopriL 20 MG TABLET PO (08:20)
[2020-08-28] MEDS: ASPIRIN 325 MG ENTERIC TABLET 650 MG PO (08:20)
[2020-08-28] MEDS: CHOLECALCIFEROL 1,000 UNITS TABLET 2000 UNITS PO (08:20)
[2020-08-28] MEDS: amLODIPine BESYLATE 5 MG TABLET PO (08:20)
[2020-08-28] MEDS: LORATADINE 10 MG TABLET BY MOUTH (08:21)
[2020-08-28 08:25] VITALS: RESP 18; O2SAT 97
[2020-08-28] MEDS: polyethylene glycoL 3350 17 GM POWD.PACK PO (08:25)
[2020-08-28] MEDS: DOCUSATE SODIUM 100 MG CAPSULE PO (08:25)
--- NOTE | 2020-08-28 12:46 | PM.IMPN ---
Progress Note: A&P Assessment and Plan (1) Degenerative joint disease of left knee: Code(s): M17.12 - Unilateral primary osteoarthritis, left knee Status: Acute Assessment and Plan: POD# 3 status post left total knee arthroplasty. Pt doing well with PT/OT. Pt having pain control and DVT prophylaxis No other compliants (2) Hypertension: Code(s): I10 - Essential (primary) hypertension Status: Acute Assessment and Plan: Resume antihypertensives and monitor daily. (3) Hyperlipidemia: Code(s): E78.5 - Hyperlipidemia, unspecified Status: Acute Assessment and Plan: Continue statin (4) Gastroesophageal reflux disease: Code(s): K21.9 - Gastro-esophageal reflux disease without esophagitis Status: Acute Assessment and Plan: No acute issues. Continue PPI. (5) Hypothyroidism: Code(s): E03.9 - Hypothyroidism, unspecified Status: Chronic Assessment and Plan: TSH is low will decrease dose of levothyroxine on discharge . (6) Bilateral plantar fasciitis: Code(s): M72.2 - Plantar fascial fibromatosis Status: Acute Assessment and Plan: Status post injections in bilateral feet. (7) Postoperative nausea and vomiting: Code(s): R11.2 - Nausea with vomiting, unspecified; Z98.890 - Other specified postprocedural states Status: Resolved Assessment and Plan: Resolved started pt on miralax and colace for constipation Subjective Date/time seen: 08/28/20 12:46 Interval history: Pt is post op day 3 left total knee replacement. Pt has history of hypertension, hypothyroidism, HLD. Pt doing well hopeful discharge today. Review of Systems Review of Systems: All systems reviewed & are unremarkable except as noted in HPI and below Exam Const: General: cooperative and healthy appearing; No in distress Nutritional Appearance: overweight Orientation/consciousness: oriented to person HENMT: Head: normal to inspection Resp: Effort & Inspection: no respiratory distress Auscultation: no rhonchi and no wheezes Cardio: Rate: regular rate Rhythm: regular rhythm GI: Inspection: normal to inspection Auscultation: normal bowel sounds Neuro: General: oriented to person Extrem: General: other (Left knee replacement, good sensation and pulses in the foot ) Objective Data Vital Signs Vital Signs: Vital Signs - 24 hr 08/27/20 16:16 08/27/20 21:48 08/27/20 22:00 Temperature 36.1 C L Pulse Rate 84 Respiratory Rate 18 Blood Pressure 138/58 L Pulse Oximetry 95 97 97 08/28/20 02:00 08/28/20 06:00 08/28/20 08:25 Temperature 36.1 C L 36.4 C Pulse Rate 75 78 Respiratory Rate 18 18 18 Blood Pressure 121/61 124/59 L Pulse Oximetry 96 97 97 Intake/Output Intake/Output: Intake & Output 08/25/20 08/26/20 08/27/20 08/28/20 23:59 23:59 23:59 23:59 Intake Total 540 2780 1190 790 Output Total 400 2250 3050 700 Balance 140 530 -1860 90 Meds/Results Medications: Active Medications Generic Name Dose Route Start Last Admin Trade Name Freq PRN Reason Stop Dose Admin Acetaminophen 1,000 mg 08/25/20 14:13 08/26/20 22:54 Acetaminophen 500 Mg Tablet PO 1,000 mg BID PRN Administration Pain 1-3 Amlodipine Besylate 5 mg 08/26/20 09:00 08/28/20 08:20 Amlodipine Besylate 5 Mg Tablet PO 09/25/20 09:01 5 mg QAM MARLA Administration Aspirin 650 mg 08/26/20 09:00 08/28/20 08:20 Aspirin 325 Mg Enteric Tablet PO 650 mg DAILY MARLA Administration Diazepam 5 mg 08/25/20 14:13 Diazepam (*Crx) 5 Mg Tablet PO Q8H PRN Spasms Diphenhydramine HCl 25 mg 08/25/20 14:13 Diphenhydramine Hcl Inj 50 Mg/Ml Vial IV PUSH Q6H PRN Itching Docusate Sodium 100 mg 08/25/20 17:00 08/28/20 08:25 Docusate Sodium 100 Mg Capsule PO 100 mg BID MARLA Administration Famotidine 20 mg 08/25/20 21:00 08/28/20 08:20 Fam
--- NOTE | 2020-08-28 13:46 | PM.PNORT ---
Progress Note: A&P Additional Plan POD 3 DOING WELL OK TO DC HOME F/U ION 3 WEEKS. Time Spent With Patient Time with patient: 15 - 25 minutes Subjective Subjective Date/Time Seen: 08/28/20 13:46 POD 3 DOING WELL. THYROID FUNCTION IS STABLE PER DR BYERS. NO CALF PAIN Exam Const: General: comfortable and no acute distress Resp: Effort & Inspection: normal respiratory effort Cardio: Rate: regular rate Rhythm: regular rhythm GI: GI Palp: Yes Soft to palpation, No Tenderness to palpation present (GI) and No Guarding due to palpation present (GI) Skin: Wounds: wounds noted (incision c/d/i ) Other: Incision c/d/i. No surrounding redness/warmth. No hematoma. Mild ecchymosis. No wound dehiscence Neuro: Cognition (Neuro): normal cognition Other: NV intact aside from block. Moves toes. Sensation intact to light touch. +ankle dorsiflexion/plantarflexion. Extrem: Left lower extremity: normal to inspection and knee Details: tenderness (diffuse ), swelling (mild ) and abnormal ROM (ROM limited due to pain/consistent with recent surgery) Other: Incision left TKA dressing c/d/i. No hematoma. No signs of infection. No wound dehiscence. Psych: Mental Status: mental status grossly normal Objective Data Vital Signs Vital Signs: Vital Signs - 24 hr 08/27/20 16:16 08/27/20 21:48 08/27/20 22:00 Temperature 36.1 C L Pulse Rate 84 Respiratory Rate 18 Blood Pressure 138/58 L Pulse Oximetry 95 97 97 08/28/20 02:00 08/28/20 06:00 08/28/20 08:25 Temperature 36.1 C L 36.4 C Pulse Rate 75 78 Respiratory Rate 18 18 18 Blood Pressure 121/61 124/59 L Pulse Oximetry 96 97 97 Intake/Output Intake/Output: Intake & Output 08/25/20 08/26/20 08/27/20 08/28/20 23:59 23:59 23:59 23:59 Intake Total 540 2780 1190 1030 Output Total 400 2250 3050 700 Balance 140 530 -1860 330 Meds/Results Medications: Active Medications Generic Name Dose Route Start Last Admin Trade Name Freq PRN Reason Stop Dose Admin Acetaminophen 1,000 mg 08/25/20 14:13 08/26/20 22:54 Acetaminophen 500 Mg Tablet PO 1,000 mg BID PRN Administration Pain 1-3 Amlodipine Besylate 5 mg 08/26/20 09:00 08/28/20 08:20 Amlodipine Besylate 5 Mg Tablet PO 09/25/20 09:01 5 mg QAM MARLA Administration Aspirin 650 mg 08/26/20 09:00 08/28/20 08:20 Aspirin 325 Mg Enteric Tablet PO 650 mg DAILY MARLA Administration Diazepam 5 mg 08/25/20 14:13 Diazepam (*Crx) 5 Mg Tablet PO Q8H PRN Spasms Diphenhydramine HCl 25 mg 08/25/20 14:13 Diphenhydramine Hcl Inj 50 Mg/Ml Vial IV PUSH Q6H PRN Itching Docusate Sodium 100 mg 08/25/20 17:00 08/28/20 08:25 Docusate Sodium 100 Mg Capsule PO 100 mg BID MARLA Administration Famotidine 20 mg 08/25/20 21:00 08/28/20 08:20 Famotidine 20 Mg Tablet PO 20 mg Q12HR MARLA Administration Levothyroxine Sodium 75 mcg 08/26/20 06:30 08/28/20 06:09 Levothyroxine Sodium 75 Mcg Tablet PO 75 mcg DAILY@0630 [facility] Administration Lisinopril 20 mg 08/26/20 09:00 08/28/20 08:20 Lisinopril 20 Mg Tablet PO 20 mg QAM MARLA Administration Loratadine 10 mg 08/25/20 14:13 08/28/20 08:21 Loratadine 10 Mg Tablet BY MOUTH 10 mg QAM PRN Administration Congestion Naloxone HCl 0.1 mg 08/25/20 14:13 Naloxone Hcl 0.4 Mg/Ml Vial IV PUSH Q2M PRN Opiate Reversal Ondansetron HCl 4 mg 08/25/20 14:13 08/25/20 16:04 Ondansetron Inj 4 Mg/2 Ml Vial IV PUSH 4 mg Q4H PRN Administration Nausea And Vomiting Oxycodone HCl 7.5 mg 08/25/20 14:13 08/27/20 11:55 Oxycodone Hcl (*Crx) 2.5 Mg Tab Ir PO 7.5 mg Q4H PRN Administration Pain Rated 7-10 Oxycodone/Acetaminophen 1 tablet 08/25/20 14:13 08/28/20 10:40 Oxycodone/Acetaminophen (*Crx) 5-325 Mg Tablet PO 1 tablet Q4H PRN Administration Pain Rated 4-6 Pantoprazole Sodium 40 mg 08/25/20 21:00 08/27/20 20:39 Pantoprazole 40 Mg Table
--- NOTE | 2020-08-28 13:50 | PM.DS ---
DS: Admitting Diagnosis Admitting Diagnosis Admitting Diagnosis: LEFT KNEE DJD DS: Discharge Diagnosis Discharge Diagnosis (1) S/P total knee arthroplasty: Qualifiers: Laterality: left Qualified Code(s): Z96.652 - Presence of left artificial knee joint Code(s): Z96.659 - Presence of unspecified artificial knee joint Status: Acute DS: Summary Hospital Course Reason for hospitalization: LEFT TKA Hospital Course: PATIENT UNDERWENT L TKA AND DID VERY WELL. POD 1 SHE STRUGGLED WITH PT BUT PAIN WAS CONTROLLED. ON POD 2 HER THYROID MEDICATIONS NEEDED TO BE ADJUSTED. SHE EVENTUALLY DID VERY WELL WITH PT. SHE WAS STABLE ON POD 3 AND READY FOR DISCHARGE TO HOME WITH HOME HEALTH AND NURSING Time spent discussing smoking cessation with patient: 3 to 10 minutes Status at Discharge Functional status at discharge: uses cane/walker Overall status at discharge: patient is not back to baseline Time Spent with Patient Time attestation: Total time spent providing and/or coordinating discharge services: Time spent: Less than 30 minutes DS: Data Data Completed and Pending Labs on day of discharge: Labs from last 24 hours 08/28/20 08/28/20 04:56 04:56 WBC 12.3 H RBC 3.69 L Hgb 10.9 L Hct 34.4 L MCV 93.2 MCH 29.5 MCHC 31.7 L RDW 12.3 Plt Count 249 MPV 10.0 Sodium 137 Potassium 3.8 Chloride 101 Carbon Dioxide 31 H Anion Gap 5 L BUN 14 Creatinine 0.60 L Estim Creat Clear Calc 75 Estimated GFR > 60 Glucose 120 H Calcium 8.6 Discharge Plan Discharge Attending physician on discharge: Damon Botello Consulting providers: Jennifer Vasquez Anticipated Discharge Date/Time: 08/27/20 15:00 Patient Disposition: Home Health Service Activity: may shower, no driving and follow weight bearing status Diet: as tolerated Wound Care Instructions: follow printed instructions Discharge Instructions: Post Op Total Knee Replacement Instructions Dr. Damon Botello [phone] ?Your dressing will be changed prior to your discharge. You will be sent home with one additional dressing to be changed in 5 days by the home health RN. Your fatemeh will be removed on the 14th day after surgery and steri-strips will be placed. ?You may shower with your dressing but do not submerge in a bath tub. ?Do not drive or operate machinery until you are released by Dr. Botello. ?Do not walk without a walker for any reason until you are released by Dr. Botello. ?Continue to use your ice machine. Please use a towel or pillow case to protect your skin before applying your ice machine. ?Do NOT place a pillow under your knee. You may use a pillow from the calf down if needed. ?You may begin use of your CPM machine at home if you have been given one pre-operatively. DO NOT USE WHILE YOU ARE SLEEPING. ?Your follow up appointment is indicated in your discharge instructions. ?Your medications have been sent to your pharmacy. ?Please contact our office with any questions/concerns regarding your knee at [phone]. Per Care Coordination: Patient to have [facility] for half-way and PT/OT evaluation/treatment. They can be reached at [phone]. PCP to repeat TSH in 3 months time, Levothyroxine dose reduced to the hospital. Patient Instructions: Antibiotic Form, Precautions after Total Joint Replacement Surgery (GEN), Knee Replacement (GEN) Patient Language: Tajik Stand Alone Forms: General Discharge Information Follow-up/Referrals: Damon Botello MD [Physician] - Keep Reg. Scheduled Appt. Discharge Medications: New aspirin 325 mg Tablet,Delayed Release (Dr/Ec) 650 mg PO DAILY 28 Days Qty: 56 RF: 0 docusate sodium 100 mg Capsule 100 mg PO BID 30 Days Qty: 60 RF: 0 oxycodone-acetaminophen 5-325 mg Tablet 1 tablet PO Q4-6H PRN (Reason: Pain Rated 4-6) Qty: 56 RF: 0 levothyroxine 50 mcg capsule 50 mcg PO DAILY Qty: 30 RF: 3 Co
== END 2020-08-28 15:05 | disposition home health service (06) ==
LOC: ANHSURGERY 17:22 → ANH2MED 17:22
PROVIDERS: Family Medicine; Physician Assistant; Admitting Provider Orthopaedic Surgery; PCP Internal Medicine; Visit Provider Orthopaedic Surgery
PROC: (CPT 27447; principal; 2020-08-25 10:30)
DX: M17.12 Unilateral primary osteoarthritis, left knee (principal); M72.2 Plantar fascial fibromatosis; G89.18 Other acute postprocedural pain; R11.2 Nausea with vomiting, unspecified; M87.00 Idiopathic aseptic necrosis of unspecified bone; I10 Essential (primary) hypertension; E78.5 Hyperlipidemia, unspecified; K21.9 Gastro-esophageal reflux disease without esophagitis
CPT/HCPCS: 27447; 64447; 64450; 36415; 73560; 80048; 80076; 80307; 81003; 82040; 83036; 84439; 84443; 84480; 85025; 85027; 85610; 85730; 86850; 86900; 86901; 87081; 97110; 97116; 97161; 97165; 97530; 97535; A9270; C1713; C1776; C9803; G0378; J0171; J0690; J1040; J1100; J1170; J2250; J2270; J2405; J2704; J2795; J3010; J7030; J7040; J7120; U0003; U0005

== ENCOUNTER → 2022-12-30 08:33 | Outpatient (CLI) | payer MEDICARE, SELFPAY ==
--- NOTE | ~2022-12-30 | US_ITS ---
US abdomen limited INDICATION: Right upper quadrant pain PROCEDURE: Realtime right upper abdominal ultrasound. COMPARISON: No prior studies for comparison. FINDINGS: The pancreas is normal without focal mass or pancreatic ductal dilation. Liver echotexture is increased, consistent with fatty infiltration. There is normal directional flow in the portal ve in. The gallbladder is normal without stones, gallbladder wall thickening or pericholecystic fluid. Comm on bile duct measures 4.9 mm. No sonographic Wright's sign. IMPRESSION: 1: Hepatic steatosis. Reviewed, dictated and finalized at location B. IMPRESSION: 1: Hepatic steatosis.
== END ==
PROVIDERS: PCP Family Medicine; Visit Provider Nurse Practitioner Family
DX: K76.0 Fatty (change of) liver, not elsewhere classified (principal)
CPT/HCPCS: 76705

== ENCOUNTER 2023-02-25 19:45 | Emergency (ER) | payer MEDICARE, SELFPAY ==
--- NOTE | ~2023-02-25 | CT_ITS ---
EXAMINATION: CT abdomen pelvis w con DATE: 02/25/2023 21:20 INDICATION: lower abd pain, diarrhea, vasovagal, leukocytosis TECHNIQUE: Computed tomography (CT) of the abdomen and pelvis was performed with 100 mL Omnipaque-350 intravenous contrast. Automated exposure control and iterative reconstruction technique were employe d. The dose-length product was 865.59 mGy-cm. COMPARISON: None. FINDINGS: Lower thorax: Unremarkable Liver: Normal. Biliary/Gallbladder: Gallbladder is normal. No bile duct dilation. Pancreas: No mass or duct dilation. Spleen: Normal. Adrenals:2.0 cm indeterminate density left adrenal mass Kidneys: Left parapelvic cysts. Punctate nonobstructing left midpole calcification. No hydronephrosis . GI tract: The stomach is moderately distended. No small or large bowel dilation. Normal appendix. Mesentery/Peritoneum: Prominent mesenteric lymph nodes with surrounding fat halos. No ascites, mass, or free air. Retroperitoneum: No mass. Atherosclerotic abdominal aortic and/or arterial calcifications. Pelvis: Pelvic organs are within normal limits. Soft Tissues: Soft tissues and body wall unremarkable. Bones: No acute osseous finding. IMPRESSION: Moderate gastric distention without obstructing lesion detected. Indeterminate 2 cm left adrenal mass, likely benign, consider 12 month follow-up adrenal CT, unless t here is a history of cancer, in which case proceeded to outpatient adrenal CT now. Mesenteric panniculitis. Reviewed, dictated and finalized at location K. IMPRESSION: Moderate gastric distention without obstructing lesion detected. Indeterminate 2 cm left adrenal mass, likely benign, consider 12 month follow-u p adrenal CT, unless there is a history of cancer, in which case proceeded to o utpatient adrenal CT now. Mesenteric panniculitis.
[2023-02-25 19:45] VITALS: BP 136/74; PULSE 73; RESP 20; TEMP 36.3; O2SAT 95
--- NOTE | 2023-02-25 20:08 | ED.ABDPAIN ---
HPI - Abdominal Pain General Chief Complaint: Abdominal Pain Stated Complaint: ABD PAIN Source: patient Mode of arrival: EMS Limitations: no limitations History of Present Illness HPI narrative: Patient is a 77-year-old female presents ED via EMS with report of near syncope. Patient reports she was at a [facility] [employer] and ate a large meal for dinner. She states she felt extremely full afterwards and started having lower abdominal pain and cramping. She felt like she needed to have a bowel movement. Upon going to the restroom, patient was straining to have a bowel movement, became diaphoretic, nauseous, lightheaded. She was able to pass some stool, but still felt ill. Family at bedside reports patient was pale, clammy, sweaty at that time. EMS was then called. She did not ever lose consciousness. Patient states she feels improved currently. She does complain of persistent lower abdominal cramping, denies any nausea or vomiting. Denies rectal bleeding or melena. Denies chest pain or shortness of breath. Denies fevers. Related Data Home Medications Medication Instructions Recorded Confirmed cetirizine 10 mg capsule (Zyrtec) 10 mg PRN PRN Congestion 10/02/19 12/28/22 cholecalciferol (vitamin D3) 25 50 mcg PO DAILY DAILY 10/02/19 12/28/22 mcg (1,000 unit) tablet omeprazole 20 mg capsule,delayed 20 mg PO HS 10/02/19 12/28/22 release Allergies Allergy/AdvReac Type Severity Reaction Status Date / Time tetracycline Allergy Unknown Itching Verified 12/28/22 14:25 Review of Systems Review of Systems: CONSTITUTIONAL: See HPI. CARDIOVASCULAR: Denies chest pain. RESPIRATORY: Denies dyspnea. GASTROINTESTINAL: See HPI. GENITOURINARY: Denies dysuria or hematuria. NEUROLOGIC: See HPI. All systems reviewed & are unremarkable except as noted in HPI and below PMFSH Past Medical History Medical History COVID-19 (~04/2020) Degenerative joint disease Frequent UTI Gastroesophageal reflux disease History of trigger finger Hyperlipidemia Hypertension Hypothyroidism Low vitamin D level Pain Surgical History Surgical History History of 2 sections History of arthroplasty of left knee History of arthroscopy of both knees History of dilation and curettage History of tubal ligation S/P total knee arthroplasty Family History Family History Sibling Family history of diabetes mellitus in first degree relative Diabetes mellitus Mother Family history of Alzheimer's disease Father Diabetes mellitus Hypertension Heart disease Social History Social History Social History: Surrogate decision maker: Seth Kiran, . Code status: Full code. Smoking status: Never smoker Second hand tobacco smoke exposure: No Alcohol intake: never Substance use: never Substance use type: does not use Living arrangements: with family Additional living arrangements comments: The patient lives in [place] with her . Occupation/Education: retired Additional occupation/education comments: Retired from teaching at age 57. Gender identity (if verbalized by the patient): Female Spiritual care concerns: No Agree to blood products: Yes Exam Narrative: GENERAL: Elderly, obese with BMI of 31.4, non-toxic, in no acute distress. HEAD: Normocephalic, atraumatic. NECK: Supple. No adenopathy, no masses. RESPIRATORY: Airway patent, respirations nonlabored. Clear to auscultation bilaterally, no rales, rhonchi, wheezing. CARDIOVASCULAR: Regular rate and rhythm without murmurs, rubs, or gallops. Radial pulses 2+ and equal bilaterally. ABDOMINAL: Soft, mild tenderness throughout lower abdomen, nondistended, no hepatosplenomegaly. Normoactive BS. MU
[2023-02-25 20:21] VITALS: BP 139/68; PULSE 69
[2023-02-25 20:23] VITALS: BP 148/75; PULSE 79
[2023-02-25 20:24] VITALS: BP 141/76; PULSE 80
[2023-02-25 20:26] LABS: Basophils Absolute Auto 0.1 K/mm3 (0.0-0.1); Basophils Percent Auto 0.4 % (0.2-1.2); Eosinophils Absolute Auto 0.2 K/mm3 (0-0.3); Eosinophils Percent Auto 1.4 % (0-4.4); Hematocrit 42.5 % (37.0-47.0); Hemoglobin 13.3 g/dL (12.0-15.0); Immature Granulocyte Absolute 0.07 K/mm3 (0.00-0.031); Immature Granulocyte Percent A 0.4 % (0-0.5); Immature Platelet Fraction Pct 3.7 % (0.9-11.2); Lymphocytes Absolute Auto 1.84 K/mm3 (0.9-3.2); Lymphocytes Percent Auto 11.2 % (18.3-44.2); Mean Corpuscular HGB Conc 31.3 g/dl (32-36); Mean Corpuscular Hemoglobin 29.5 pg (26-34); Mean Corpuscular Volume 94.2 fl (80-100); Monocytes Absolute Auto 1.3 K/mm3 (0.1-0.6); Monocytes Percent Auto 7.7 % (2.6-8.5); Neutrophils Percent Auto 78.9 % (45.5-73.1); Platelet Count Result 254 k/mm3 (150-375); Red Blood Count 4.51 M/mm3 (4.2-5.4); Red Cell Distribution Width 13.3 % (11.5-14.5); White Blood Count 16.4 K/mm3 (4.5-10.0)
--- NOTE | 2023-02-25 20:39 | ECG_ITS ---
Measurements Intervals [place] Rate: 72 P: 59 MI: 160 QRS: -1 QRSD: 98 T: 50 QT: 382 QTc: 419 Interpretive Statements SINUS RHYTHM LOW QRS VOLTAGE OTHERWISE WITHIN NORMAL LIMIT NO PREVIOUS ECG AVAILABLE FOR COMPARISON Electronically Signed On 02-26-2023 8:25:09 CDT by Chico Gates M.D.
[2023-02-25 20:44] LABS: Alanine Aminotransferase 35 U/L (6-35); Albumin Level 4.6 g/dL (3.5-5.1); Alkaline Phosphatase 87 U/L (38-126); Anion Gap 8 mmol/L (8-16); Aspartate Amino Transferase 41 U/L (14-36); Bilirubin,Total 0.7 mg/dL (0.2-1.3); Blood Urea Nitrogen 14 mg/dL (7-17); Calcium 9.2 mg/dL (8.4-10.2); Carbon Dioxide 26 mmol/L (22-30); Chloride 103 mmol/L (98-107); Estimated CRCL calculation 65 ml/min; Estimated Glomerular Filt Rate > 60; Glucose 231 mg/dL (65-110); Sodium 137 mmol/L (137-145)
[2023-02-25 20:53] LABS: Lipase 104 U/L (23-300)
[2023-02-25] MEDS: SODIUM CHLORIDE 0.9% IV 1,000 ML 999 ML IV CONT (20:54)
[2023-02-25 21:06] LABS: Troponin I < 0.012 ng/mL (0.000-0.034)
[2023-02-25 21:32] LABS: Appearance Urine Clear (Clear); Bilirubin Urine Negative (Negative); Blood Urine Negative (Negative); Color Urine Yellow (Yellow); Glucose Urine UA Negative (Negative); Ketones Urine Negative (Negative); Leukocyte Esterase Ur Negative LEU/UL (Negative); Nitrate Urine Negative (Negative); Protein Urine Negative (Negative); Specific Grav Ur 1.024 (1.001-1.035); Urobilinogen Urine 0.2 mg/dL (<2.0); pH Urine 5.5 (5.0-9.0)
[2023-02-25 21:45] LABS: Add Urine Microscopic? NO
[2023-02-25 22:26] VITALS: BP 138/78; PULSE 72; RESP 19; O2SAT 93
[2023-02-25 23:17] VITALS: BP 134/68; PULSE 74; RESP 19; O2SAT 99
[2023-02-26 00:38] LABS: Glucose Point of Care 208 mg/dl (65-105)
== END 2023-02-25 23:17 | disposition home or self-care (01) ==
PROVIDERS: Emergency Provider Physician Assistant; PCP Family Medicine
DX: R55 Syncope and collapse (principal); K31.89 Other diseases of stomach and duodenum; R10.30 Lower abdominal pain, unspecified; I10 Essential (primary) hypertension; E78.5 Hyperlipidemia, unspecified; E03.9 Hypothyroidism, unspecified; E55.9 Vitamin D deficiency, unspecified; K21.9 Gastro-esophageal reflux disease without esophagitis; Z96.652 Presence of left artificial knee joint; Z86.16 Personal history of COVID-19; Z87.440 Personal history of urinary (tract) infections; E27.8 Other specified disorders of adrenal gland; K65.4 Sclerosing mesenteritis
CPT/HCPCS: 36415; 74177; 80053; 81003; 82948; 83690; 84484; 85025; 85055; 93005; 96360; 96361; 99284; J7030; Q9967

== ENCOUNTER 2023-03-07 10:55 | Outpatient (RCR) | payer MEDICARE, SELFPAY ==
[2023-03-07 11:11] VITALS: BMI 29.9
[2023-03-07 11:14] VITALS: BMI 29.9
== END 2023-05-30 12:39 | disposition home or self-care (01) ==
LOC: ANHDMC 10:55
PROVIDERS: PCP Family Medicine; Visit Provider Family Medicine
DX: E11.9 Type 2 diabetes mellitus without complications (principal); E66.9 Obesity, unspecified; Z78.9 Other specified health status; Z71.3 Dietary counseling and surveillance
CPT/HCPCS: 97802

== ENCOUNTER 2023-04-05 01:26 | Day surgery (SDC) | payer MEDICARE, SELFPAY ==
[2023-03-20 10:19] VITALS: BMI 29.1
--- NOTE | 2023-04-03 10:19 | SUR.PREOP ---
Patient called regarding upcoming procedure. Reviewed preop instructions, appointment times, and procedure prep.
[2023-04-05 06:44] LABS: Glucose Point of Care 105 mg/dl (65-105)
[2023-04-05 06:45] VITALS: BP 132/73; PULSE 63; RESP 16; TEMP 35.9; O2SAT 98
[2023-04-05] MEDS: LACTATED RINGERS 1,000 ML 150 ML IV CONT (06:48)
--- NOTE | 2023-04-05 07:38 | WPDANESEPPF ---
Anes - Initial Pre Proc Eval Procedure: Operation Date: 04/05/23 08:00 Proposed Procedures p Colonoscopy - Heber iLnder MD Date/Time: 04/05/23 07:38 Surgeon: Heber Linder MD Pre Op Diagnosis: hemorrhage of anus and rectum, neoplasm screening Patient Data Age: 77 Gender: F Height: 1.63 m Weight: 77.1 kg Last Vital Signs Temp 96.7 F L 04/05/23 06:45 Pulse 63 04/05/23 06:45 Resp 16 04/05/23 06:45 BP 132/73 04/05/23 06:45 Pulse Ox 98 04/05/23 06:45 O2 Del Method Room Air 04/05/23 06:45 Allergies Allergy/AdvReac Type Severity Reaction Status Date / Time tetracycline Allergy Unknown Itching Verified 04/05/23 06:43 Home Medications Medication Instructions Recorded Confirmed Type cetirizine 10 mg capsule (Zyrtec) 10 mg PRN PRN Congestion 10/02/19 04/05/23 History cholecalciferol (vitamin D3) 25 50 mcg PO DAILY DAILY 10/02/19 04/05/23 History mcg (1,000 unit) tablet omeprazole 20 mg capsule,delayed 20 mg PO HS 10/02/19 04/05/23 History release estradiol 10 mcg vaginal insert 10 mcg vaginal 2XW #8 inserts 09/13/22 04/05/23 Rx (Imvexxy Maintenance Pack) amlodipine 5 mg-benazepril 20 mg See Rx Instructions .Route 02/17/23 04/05/23 Rx capsule .COMPLEX #90 caps metformin 500 mg tablet,extended 500 mg PO DAILY #90 tabs 02/28/23 04/05/23 Rx release 24 hr levothyroxine 50 mcg tablet 50 mcg PO DAILY 04/05/23 04/05/23 History rosuvastatin 10 mg tablet 10 mg PO DAILY 04/05/23 04/05/23 History Laboratory Tests 04/05/23 06:41 POC Capillary Glucose 105 mg/dl (65-105) Patient hx anesthesia problems: none Family hx anesthesia problems: none Results Review: All pre-operative results and documents have been reviewed as part of the pre-operative evaluation. [facility] Past Medical History Medical History (Updated 02/28/23 @ 10:06 by Anival Alfonso MD) Bright red rectal bleeding COVID-19 (~04/2020) Degenerative joint disease Frequent UTI Gastroesophageal reflux disease History of trigger finger Hyperlipidemia Hypertension Hypothyroidism Low vitamin D level Obesity Pain Screening for colon cancer Weight loss advised Surgical History Surgical History History of 2 sections History of arthroplasty of left knee History of arthroscopy of both knees History of dilation and curettage History of tubal ligation S/P total knee arthroplasty Family History Family History Sibling Family history of diabetes mellitus in first degree relative Diabetes mellitus Mother Family history of Alzheimer's disease Father Diabetes mellitus Hypertension Heart disease Social History Social History Social History: Surrogate decision maker: Seth Guerraefer, . Code status: Full code. 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 Gender identity (if verbalized by the patient): Female Spiritual care concerns: No Agree to blood products: Yes Anes - Eval Final PreProcedure Day of Procedure 04/05/23 07:38 Patient weight: normal Heart: regular rate and rhythm Lungs: clear to auscultation Airway: Mallampati scale class II Neurological: alert and oriented Last oral intake: >/= 8 hours ASA classification: III Emergent: no Anesthetic plan: proceed Anesthesia type and monitoring: general GIVS and standard monitoring Results Review: All pre-operative results and documents have been reviewed as part of the pre-operative evaluation. Informed Consent: The chante
--- NOTE | 2023-04-05 07:55 | PM.HPGS ---
History of Present Illness History of Present Illness Consent: Risks, benefits, and alternatives have been discussed and questions answered. Patient agrees to proceed with procedure. Chief complaint: hemorrhage of anus and rectum, neoplasm screening Narrative: Katerina Kiran is a 77 year old female here for colonoscopy, last time 12 years ago. About 5 weeks ago had episode of lower abdominal pain, nausea and blood in stool. She came to ER and had CT scan. Now asymptomatic. Review of Systems Constitutional: Constitutional: Denies headache(s) and Denies weakness Eyes: Eyes: Denies blurry vision ENT: Reports Normal hearing present, Denies headache(s) and Denies neck pain Cardiovascular: Cardiovascular: Denies chest pain and Denies dyspnea Respiratory: Respiratory: Denies dyspnea Gastrointestinal: Gastrointestinal: Reports no additional gastrointestinal complaints Genitourinary: Genitourinary: Denies dysuria Musculoskeletal: Musculoskeletal: Denies neck pain Integumentary/Breasts: Skin/Breast: Denies dry skin Neurologic: Reports Normal hearing present, Denies headache(s) and Denies weakness Psychiatric: Psychiatric: Denies anxiety Endocrine: Endocrine: Denies change in body appearance Hematologic/Lymphatic: Hematologic/Lymphatic: Denies easy bleeding Allergic/Immunologic: Allergic/Immunologic: Denies urticaria PMFSH Past Medical History Medical History (Updated 02/28/23 @ 10:06 by Anival Alfonso MD) Bright red rectal bleeding COVID-19 (~04/2020) Degenerative joint disease Frequent UTI Gastroesophageal reflux disease History of trigger finger Hyperlipidemia Hypertension Hypothyroidism Low vitamin D level Obesity Pain Screening for colon cancer Weight loss advised Surgical History Surgical History History of 2 sections History of arthroplasty of left knee History of arthroscopy of both knees History of dilation and curettage History of tubal ligation S/P total knee arthroplasty Family History Family History Sibling Family history of diabetes mellitus in first degree relative Diabetes mellitus Mother Family history of Alzheimer's disease Father Diabetes mellitus Hypertension Heart disease Social History Social History Social History: Surrogate decision maker: Seth Kiran, . Code status: Full code. 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 Gender identity (if verbalized by the patient): Female Spiritual care concerns: No Agree to blood products: Yes Meds Home Medications and Allergies Home Medications Medication Instructions Recorded Confirmed Type cetirizine 10 mg capsule (Zyrtec) 10 mg PRN PRN Congestion 10/02/19 04/05/23 History cholecalciferol (vitamin D3) 25 50 mcg PO DAILY DAILY 10/02/19 04/05/23 History mcg (1,000 unit) tablet omeprazole 20 mg capsule,delayed 20 mg PO HS 10/02/19 04/05/23 History release estradiol 10 mcg vaginal insert 10 mcg vaginal 2XW #8 inserts 09/13/22 04/05/23 Rx (Imvexxy Maintenance Pack) amlodipine 5 mg-benazepril 20 mg See Rx Instructions .Route 02/17/23 04/05/23 Rx capsule .COMPLEX #90 caps metformin 500 mg tablet,extended 500 mg PO DAILY #90 tabs 02/28/23 04/05/23 Rx release 24 hr levothyroxine 50 mcg tablet 50 mcg PO DAILY 04/05/23 04/05/23 History rosuvastatin 10 mg tablet 10 mg PO DAILY 04/05/23 04/05/23 History Allergies Allergy/AdvReac Type Severity Reaction Status Date / Time tetracycline Allergy Unknown Itching Verified
[2023-04-05 08:14] VITALS: BP 108/60; PULSE 61; RESP 17; O2SAT 95
[2023-04-05 08:24] VITALS: BP 101/56; PULSE 60; RESP 14; O2SAT 95
[2023-04-05 08:34] VITALS: BP 110/62; PULSE 59; RESP 17; O2SAT 96
== END 2023-04-05 08:45 | disposition home or self-care (01) ==
PROVIDERS: PCP Family Medicine; Visit Provider Internal Medicine Gastroenterology
PROC: 0DJD8ZZ Inspection of Lower Intestinal Tract, Via Natural or Artificial Opening Endoscopic (ICD-10-PCS; CPT 45378; principal; 2023-04-05 08:00)
DX: Z12.11 Encounter for screening for malignant neoplasm of colon (principal); D12.3 Benign neoplasm of transverse colon; E78.5 Hyperlipidemia, unspecified; K21.9 Gastro-esophageal reflux disease without esophagitis; I10 Essential (primary) hypertension; E03.9 Hypothyroidism, unspecified
CPT/HCPCS: 45380; 82948; 88305; J2704; J7120

== ENCOUNTER 2023-06-06 11:13 | Outpatient (RCR) | payer MEDICARE, SELFPAY ==
[2023-06-06 11:20] VITALS: BMI 27.4
[2023-06-06 12:47] VITALS: BMI 27.4
== END 2023-08-31 14:01 | disposition home or self-care (01) ==
LOC: ANHDMC 11:13
PROVIDERS: PCP Family Medicine; Visit Provider Family Medicine
DX: E11.9 Type 2 diabetes mellitus without complications (principal); E66.9 Obesity, unspecified; Z78.9 Other specified health status; Z71.3 Dietary counseling and surveillance
CPT/HCPCS: 97803

== ENCOUNTER 2024-04-23 07:37 | Outpatient (CLI) | payer MEDICARE, SELFPAY ==
--- NOTE | ~2024-04-23 | CT_ITS ---
CT of the Abdomen and Pelvis: Indication: Left adrenal mass Technique: 2.5 mm axial scans were obtained through the abdomen and pelvis prior to and following in travenous administration of 100 cc of Omnipaque 350. Dose reduction technique was used on this scan b y utilizing automated exposure control and iterative reconstruction technique. The dose-length produc t (DLP) was 1154.27 mGy-cm. COMPARISON: 02/25/2023 Findings: Scans through the lung bases are unremarkable. The liver, spleen, pancreas, gallbladder, right adrenal gland, and kidneys are within normal limits. Stable 1.9 cm left adrenal nodule, low-density on precontrast images, compatible with benign adenoma. There are atherosclerotic calcifications of the aorta. No lymphadenopathy. No bowel obstruction or bowel wall thickening. There is no evidence to suggest acute appendicitis. Th ere is mild haziness in the central mesentery with shotty lymph nodes, compatible with mesenteric kim niculitis. Images through the pelvis were performed. Urinary bladder unremarkable. No pelvic mass seen. No ascit es. Impression: Stable 1.9 cm left adrenal adenoma. Mild mesenteric panniculitis. Reviewed, dictated and finalized at location . [employer] Impression: Stable 1.9 cm left adrenal adenoma. Mild mesenteric panniculitis.
== END 2024-04-23 07:38 | disposition home or self-care (01) ==
PROVIDERS: PCP Physician Assistant Medical; Visit Provider Physician Assistant Medical
DX: E27.8 Other specified disorders of adrenal gland (principal); K65.4 Sclerosing mesenteritis
CPT/HCPCS: 74178; Q9967

== ENCOUNTER 2024-12-31 09:13 | Outpatient (CLI) | payer MEDICARE, SELFPAY ==
--- NOTE | ~2024-12-31 | XR_ITS ---
XR knee LT 3V 12/31/2024 09:50 Indication: Left knee pain Procedure: 3 views left knee Comparison: Comparison to multiple prior studies sequentially, with oldest reviewed study dated 09/14/2020. Findings: No acute fracture or traumatic malalignment. There is a left total knee arthroplasty well seated. No significant joint effusion. Impression: 1: No acute bone or joint abnormality. Reviewed, dictated and finalized at location O. Impression: 1: No acute bone or joint abnormality.
--- OUTSIDE RECORDS SUMMARY | 2024-12-31 09:34 | XMS_ITS | Clinical Summary ---
Author Organization [facility] Address [address] [place] [address] Care Team Providers Care Warehouse Team Member Name Role Phone Melody Sheridan Primary Care Provider [phone] Allergies Active Allergy Reactions Criticality Noted Date Comments Tetracycline Redness 10/19/2019 Medications amLODIPine-guillermo zepril 5-20 MG capsule Take 1 capsule by mouth daily. 0 9 Active HYDROcodone-karen taminophen 5-325 MG tablet 0 Active levothyroxine 75 MCG tablet Take 75 mcg by mouth daily. 0 9 Active rosuvastatin 10 MG tablet Take 10 mg by mouth daily. 0 9 Active conjugated estrogens 0.625 MG/GM vaginal cream Place vaginally daily. Active Family History Medical History Relation Comments Dementia Brother Diabetes Father Heart Disease Father Alzheimers Mother Breast Cancer Neg Hx Relation Status Comments Brother Father Mother Social History Tobacco Use Types Packs/Day Years Used Date Smoking Tobacco: Never Smokeless Tobacco: Never Alcohol Use Standard Drinks/Week Comments Never 0 (1 standard drink = 0.6 oz pur e alcohol) AUDIT-C Answer Date Recorded Frequency of Alcohol Consumption Never 10/19/2019 Average Number of Drinks Not on file 020 Frequency of Binge Drinking Not on file 10/06 Comments No Sex and Gender Information Value Date Recorded Sex Assigned at Not on file Legal Sex Female 5:20 PM CDT Gender Identity Not on file Sexual Orientation Not on file Last Filed Vital Signs Vital Sign Reading Time Taken Comments Blood Pressure 144/61 10/03/2021 6:05 PM CDT Pulse 82 10/03/2021 5:19 PM CDT Temperature 36.4 C (97.5 F) 10/03/2021 5:19 PM CDT Respiratory Rate 18 10/03/2021 5:19 PM CDT Oxygen Saturation 95% 10/03/2021 6:05 PM CDT Inhaled Oxygen Concentration - - Weight 77.1 kg (170 lb) 10/03/2021 5:19 PM CDT Height 165.1 cm (5' 5) 10/03/2021 5:19 PM CDT Body Mass Index 28.29 10/03/2021 5:19 PM CDT Plan of Treatment Health Maintenance Due Date Last Done Comments Hepatitis C 1963 DTaP, Tdap and Td Vaccines ( 1 - Tdap) 1966 Pneumococcal Vaccine: 50+ Years (1 of 1 - PCV) 1997 Annual Medicare Wellness Visit 2012 RSV Immunization or 60+ Years (1 - 1-dose 75+ series) 2022 COVID-19 Vaccine ( - 2023-2 5 season) 2024 Zoster Vaccines Completed 05/09/2019, 01/08/2019, 08/15/2013 Dexa Scan (General) Completed 06/05/2024, 03/10/2021 Meningococcal B Vaccine Aged Out No l onger eligible based on patient's age to complete this topic Meningococcal Vaccine Aged Out No saeid guerita eligible based on patient's age to complete this topic RSV Immunizations Under 20 Months Aged Out No longer eligible b ased on patient's age to complete this topic Procedures Procedure Name Priority Date/Time Associated Diagnosis Comments BONE DENSITY/DEXA Routine 06/05/2024 1:1 6 PM [employer]ESS INTERNET INST[employer]ER Asymptomatic menopausal state from Last 3 Months or Most Recently Relevant to Health Maintenance Results * BONE DENSITY/DEXA (06/05/2024 1:16 PM WIRELESS INTERNET INSTALLER) Anatomical Region Laterality Modality Bone Bone Density 06/06/2024 2:07 AM WIRELESS INTERNET INSTALLER Impressions 06/06/2024 2:08 AM WIRELESS INTERNET INSTALLER IMPRESSION: WHO Classification: Osteopenia RECOMMENDATIONS: All patients should ensure an adequate intake of dietary calcium and vitamin D. The NOF recommend adults under the age of 50 need 1000 mg of calcium and 400-800 IU of vitamin D daily. Effective therapy for the prevention and treatment of osteoporosis include bisphosphonates. Follow-up: People with diagnosed cases of osteoporosis or at high risk for fracture should have regular bone mineral density test. For patients eligible for Medicare, routine testing is allowed once every 2 years. Testing frequency can be increased to one year for patients who have rapidly progressing disease, those who are receiving or discontinuing medical therapy to restore bone mass, or have additional risk factors. Referred By: MELODY SHERIDAN Interpreted By: Ruslan Velazquez MD, 06/06/2024 2:07 AM Narrative 06/06/2024 2:08 AM W[employer]LESS INTERNET INST[employer]ER [address] [place] [address] EXAMINATION: BONE DENSITY/DEXA INDICATIONS: Asymptomatic menopausal state TECHNIQUE: DEXA bone mineral density evaluation was performed in the AP projection over the lumbar spine and both hips utilizing standard imaging techniques. ASSESSMENT: The BMD measured at the AP spine L1-L4 is 0.926 g/cm? with a T-score of -1.1. The BMD measured at the left femoral neck is 0.634 g/cm? with a T-score of -1.9. The BMD measured at the left hip is 0.902 g/cm? with a T-score of -0.3. The BMD measured at the right femoral neck is 0.747 g/cm? with a T-score of - 0.9. The BMD measured at the right hip is 0.843 g/cm? with a T-score of -0.8. FRAX 10-year fracture risk: Major Osteoporotic Fracture: 14% Hip Fracture: 3.5% Procedure Note Ruslan Velazquez MD - 06/06/2024 [facility] [address] [place] [id number] EXAMINATION: BONE DENSITY/DEXA INDICATIONS: Asymptomatic menopausal state TECHNIQUE: DEXA bone mineral density evaluation was performed in the APprojection over the lumbar spine and both hips utilizing standard imagingtechniques. ASSESSMENT: The BMD measured at the AP spine L1-L4 is 0.926 g/cm? with a T-score of-1.1. The BMD measured at the left femoral neck is 0.634 g/cm? with a T-score of-1.9. The BMD measured at the left hip is 0.902 g/cm? with a T-score of -0.3. The BMD measured at the right femoral neck is 0.747 g/cm? with a T-scoreof -0.9. The BMD measured at the right hip is 0.843 g/cm? with a T-score of -0.8. FRAX 10-year fracture risk: Major Osteoporotic Fracture: 14% Hip Fracture: 3.5% IMPRESSION: WHO Classification: Osteopenia RECOMMENDATIONS: All patients should ensure an adequate intake of dietary calcium andvitamin D. The NOF recommend adults under the age of 50 need 1000 mg ofcalcium and 400-800 IU of vitamin D daily. Effective therapy for theprevention and treatment of osteoporosis include bisphosphonates. Follow-up: People with diagnosed cases of osteoporosis or at high risk for fractureshould have regular bone mineral density test. For patients eligible forMedicare, routine testing is allowed once every 2 years. Testing frequencycan be increased to one year for patients who have rapidly progressingdisease, those who are receiving or discontinuing medical therapy torestore bone mass, or have additional risk factors. Referred By: MELODY SHERIDAN Interpreted By: Ruslan Velazquez MD, 06/06/2024 2:07 AM Melody PEPE DEXA Final Result from Last 3 Months or Most Recently Relevant to Health Maintenance Insurance [employer] Care Teams Warehouse Team Member Relationship Specialty Start Date End Date Melody Sheridan PA [address] [place] [id number] PCP - General PHYSICIAN FRUIT RECEIVER 04/10/24
== END 2024-12-31 09:14 | disposition home or self-care (01) ==
PROVIDERS: PCP Physician Assistant Medical; Visit Provider Orthopaedic Surgery
DX: M25.562 Pain in left knee (principal)
CPT/HCPCS: 73562